=== PATIENT | male | born 1965 | race Caucasian/White ===

== ENCOUNTER → 2020-04-02 14:24 | Outpatient (BNVA) | payer MEDICARE, MEDICAID, SELFPAY | PROVIDERS: Visit Provider Internal Medicine | DX: Z76.89 Persons encountering health services in other specified circumstances (principal) ==

== ENCOUNTER 2021-03-31 13:32 | Outpatient (RCR) | payer OTHER, SELFPAY ==
[2021-03-31 13:54] VITALS: BP 162/83
== END 2021-04-11 11:43 | disposition home or self-care (01) ==
LOC: HO.PT 13:32
PROVIDERS: PCP Nurse Practitioner Family; Visit Provider Nurse Practitioner Family
DX: M54.50 Low back pain, unspecified (principal)
CPT/HCPCS: 97162

== ENCOUNTER → 2021-06-10 14:40 | Outpatient (BNVA) | payer OTHER, SELFPAY | PROVIDERS: PCP Nurse Practitioner Family; Referring Provider Nurse Practitioner Family; Visit Provider Internal Medicine | DX: I25.10 Atherosclerotic heart disease of native coronary artery without angina pectoris (principal); E11.9 Type 2 diabetes mellitus without complications; I10 Essential (primary) hypertension; E78.5 Hyperlipidemia, unspecified; Z86.73 Personal history of transient ischemic attack (TIA), and cerebral infarction without residual deficits; Z87.891 Personal history of nicotine dependence | CPT/HCPCS: 93005; 99212 ==

== ENCOUNTER 2022-02-06 12:41 | Inpatient (IN) | payer OTHER, SELFPAY ==
--- NOTE | ~2022-02-06 | CT_ITS ---
EXAMINATION: CT HEAD WITHOUT CONTRAST (STROKE PROTOCOL) CLINICAL INFORMATION: Stroke protocol. Change in mental status. Dysarthria. Ataxia. COMPARISON: MRI of the head done on 06/05/[address] of the head done on 06/05/[address] of the head also done on 06/05/2019. TECHNIQUE: Contiguous axial imaging was performed from the skull base to vertex without intravenous administration of contrast. This CT examination was performed using dose optimization techniques as appropriate, variously including the following: *Automated exposure control *Adjustment of mA and/or kV according to patient size (this includes techniques or standardized protocols for targeted exams where dose is matched to indication/reason for exam; i.e. extremities or head) *Use of iterative reconstruction technique DLP: 679 mGy-cm FINDINGS: There is no evidence of acute intracranial hemorrhage or territorial infarction. No abnormal mass effect or midline shift is seen. Gore to white matter differentiation is well preserved. No extra-axial fluid collections are identified. No significant volume loss. No hydrocephalus. Previously documented, clinically known old infarctions at the left basal ganglia are reidentified. The osseous structures and soft tissues are normal. Sclerosis of both mastoid air cells appear unchanged. Air-fluid level within the left maxillary sinus may represent acute sinusitis or intrasinus hemorrhage, if this patient has any recent trauma. CT/CT head for stroke IMPRESSION: No acute intracranial pathology. Previously documented, clinically known old infarctions at the left basal ganglia reidentified. Interval development of small air-fluid level within the left maxillary sinus, may represent acute sinusitis or intrasinus hemorrhage in this patient has any recent trauma. This critical result was discussed with Dr. Marco MD at 1:06 PM hours on 02/06/2022. It was ascertained that the content and urgency of the report was understood at the time of direct communication.
--- NOTE | ~2022-02-06 | XR_ITS ---
EXAMINATION: XR CHEST CLINICAL INFORMATION: Question pneumonia COMPARISON: Chest x-ray 06/05/2019 TECHNIQUE: Frontal view of the chest was obtained. FINDINGS: The lungs are clear. No airspace consolidation, pleural effusion, or pneumothorax. The cardiomediastinal silhouette is within normal limits. No acute osseous injury. XR/XR chest 1V IMPRESSION: No acute pulmonary process.
--- NOTE | ~2022-02-06 | CT_ITS ---
EXAMINATION: CT ANGIOGRAM HEAD CT ANGIOGRAM NECK CLINICAL INFORMATION: Reason for Exam dysarthria COMPARISON: Same day CT head without contrast, CTA head and neck 06/05/2019 TECHNIQUE: Initial noncontrast rotating field assembler imaging of the head and neck was performed. Comparison is made with noncontrast head CT from earlier today. Test bolus sequences followed by intravenous administration 70 mL of Omnipaque 350. Helical imaging was performed in the axial plane from the aortic arch to the skull vertex. Delayed postcontrast imaging of the head was also performed. The data was processed at the generation technologist's workstation for generation of MIP sequences. Angled MIPs and volume rendered reformatted images were also generated at an offline 3D workstation. Stenoses are assessed in accordance with NASCET criteria unless otherwise indicated. DLP: 1591 mGy-cm This CT examination was performed using dose optimization techniques as appropriate, variously including the following: *Automated exposure control. *Adjustment of mA and/or kV according to patient size (this includes techniques or standardized protocols for targeted exams where dose is matched to indication/reason for exam; i.e. extremities or head). *Use of iterative reconstruction technique. FINDINGS: CT of the head and neck is somewhat motion degraded. CT Head: There is no evidence of acute intracranial hemorrhage or edematous territorial infarction. A few foci of hypoattenuation in the periventricular and deep white matter are consistent with mild microangiopathy. Chronic left basal ganglia lacunar infarct. Gore-white matter differentiation is preserved. The ventricles are normal in size and configuration. No evidence for obstructive hydrocephalus. No abnormal mass effect or midline shift. No extra-axial fluid collections. No pathologic intra-axial enhancement or regional oligemia. No acute soft tissue or osseous abnormalities. Mild left greater than right maxillary sinus opacification. Mild ethmoid and left frontal sinus mucosal thickening. Bilateral mastoid fluid. CT Neck: The thyroid gland and remaining cervical soft tissues are within normal limits. Multilevel cervical spondylosis. CT Upper Chest: The visualized lung apices and upper mediastinum are within normal limits. Neck CTA: Aortic Arch: Normal contour and caliber. Classic 3 vessel branching pattern of the aortic arch. Great Vessel Origins: Dilation of the branch origins and proximal vessels in the neck is limited due to motion. Right Common Carotid Artery: No focal stenosis or occlusion. Cervical Right Internal Carotid Artery: Normal opacification without focal stenosis or occlusion. Left Common Carotid Artery: No focal stenosis or occlusion. Cervical Left Internal Carotid Artery: Calcific atherosclerotic disease of the carotid bulb and proximal internal carotid artery causing less than 50% stenosis. Cervical Right Vertebral Artery: No focal stenosis or occlusion. Cervical Left Vertebral Artery: No focal stenosis or occlusion. Brain CTA: Intracranial Internal Carotid Arteries: Calcific atherosclerotic disease of the intracranial internal carotid arteries without occlusion or flow-limiting stenosis. Right Anterior Cerebral Artery: New moderate stenosis of the right A1 origin. Normal opacification of the distal SNUG segments. Left Anterior Cerebral Artery: Normal A1 segment. Normal opacification of the distal SUNG segments. Anterior Communicating Artery: Normal. Right Middle Cerebral Artery: There is new mild to moderate stenosis of the proximal right M1 segment related to atherosclerotic disease. Normal arborization of the distal segments. Left Middle Cerebral Artery: Normal M1 segment of the MCA without focal stenosis or occlusion. Suggestion of focal high-grade stenosis involving a proximal left M2 branch (series 7 image 269) Right Vertebral Artery: Normal V4 segment. Left Vertebral Artery: Moderate stenosis of the mid intradural left vertebral artery as well is at the vertebrobasilar junction, likely on the basis of atherosclerotic disease, new compared to prior. Basilar Artery: Normal without focal stenosis or occlusion. Normal appearance of the proximal superior cerebellar arteries. Right Posterior Cerebral Artery: Normal P1 segment. Normal opacification of the distal SALES TEAM LEADER segments. Left Posterior Cerebral Artery: Normal P1 segment. Normal opacification of the distal SALES TEAM LEADER segments. New diffuse moderate stenosis of the left P2 segment Normal opacification of the superior sagittal, straight, transverse, and sigmoid sinuses. CT/CT angio head neck stroke IMPRESSION: Evidence of progressive intracranial atherosclerotic disease compared to CTA from 06/05/2019 without discrete large vessel occlusion. There is new moderate stenosis of the intradural left vertebral artery, left P2 segment, proximal right M1 segment, and right A1 origin. There is also suggestion of focal high-grade stenosis involving a proximal left M2 branch. Consider further evaluation with noncontrast MRI if there is concern for acute ischemia Above impression was discussed with Dr. Lara on 02/06/2022 at 1:26 PM
[2022-02-06 12:48] VITALS: BP 200/100; PULSE 112; O2SAT 97
[2022-02-06 12:50] VITALS: BMI 35.5
[2022-02-06 12:52] LABS: Glucose, Whole Blood 234 mg/dL (60-115)
[2022-02-06] MEDS: iohexoL 350 MG/ML 100 ML INFUS..BTL IV (13:12)
--- NOTE | 2022-02-06 13:14 | ED.NEUROSD ---
HPI - Neuro Symptoms/Deficit General Chief Complaint: Neuro Symptoms/Deficit Stated Complaint: stroke alert Time Seen by Provider: 02/06/22 12:43 Source: patient and EMS Mode of arrival: EMS History of Present Illness HPI Narrative: Patient with history of CVA in 2019 MRI showed lacunar infarcts in right temporal stem and left internal capsule, diabetes brought by EMS for acute onset of garbled speech and confusion noticed at 02:00 when patient went to the bathroom. According to patient's patient was very confused trying to eat canned food from the can lid acting weird delusional and hallucinating patient use cocaine but did use it last night patient had garbled speech when patient arrived seeing things Related Data Home Medications Medication Instructions Recorded Confirmed albuterol sulfate 90 mcg/actuation 2 puff inhalation Q6H PRN 06/10/21 06/10/21 aerosol inhaler (Ventolin HFA) amlodipine 10 mg tablet 10 mg PO DAILY 06/10/21 06/10/21 aspirin 81 mg tablet,delayed 81 mg PO DAILY 06/10/21 06/10/21 release (Adult Low Dose Aspirin) bupropion HCl 150 mg tablet,12 hr 150 mg PO BID 06/10/21 06/10/21 sustained-release (Wellbutrin SR) metformin 500 mg tablet 500 mg PO DAILY 06/10/21 06/10/21 naproxen 250 mg tablet 250 mg PO BID 06/10/21 06/10/21 tramadol 50 mg tablet 50 mg PO TID PRN 06/10/21 06/10/21 Previous Rx's Medication Instructions Recorded atorvastatin 80 mg tablet 80 mg PO QPM #90 tabs 06/10/21 lisinopril 40 mg tablet 40 mg PO DAILY #90 tabs 06/10/21 Allergies Allergy/AdvReac Type Severity Reaction Status Date / Time acetaminophen [From NYQUIL] Allergy Unknown UNKNOWN Verified 06/10/21 14:51 dextromethorphan Allergy Unknown UNKNOWN, Verified 06/10/21 14:51 [From NYQUIL] ingredient of Nyqui doxylamine [From NYQUIL] Allergy Unknown UNKNOWN Verified 06/10/21 14:51 pseudoephedrine [From NYQUIL] Allergy Unknown UNKNOWN, Verified 06/10/21 14:51 ingredient of Nyqui Doxylamine Succinate Allergy Unknown ingredient Uncoded 06/10/21 14:51 of Nyqui NyQuil Allergy Unknown unknown Uncoded 06/10/21 14:51 Review of Systems Review of Systems: Yes all other systems are reviewed and are negative FORMERLY [facility] Past Medical History Medical History Essential hypertension Surgical History H/O elbow surgery H/O wrist surgery H/O: hemorrhoidectomy Family History Family History Mother Diabetes HTN (hypertension) CAD (coronary artery disease) Father No problems noted. Social History Social History Alcohol intake: current Alcohol intake frequency: a few times a week Alcohol type: beer Patient Tobacco Use Status: Current everyday Tobacco user Cigarettes Per Day: 6 Years Smoked: 45 +/- Substance Use Type: Crack/Cocaine Advance Directives: No Advance Directives Information Provided: Yes Physical Exam Vital Signs: Vital Signs: Last Vital Signs Temp 100.3 F 02/06/22 16:05 Pulse 108 H 02/06/22 13:28 Resp 18 02/06/22 13:28 BP 185/96 H 02/06/22 13:28 Pulse Ox 95 02/06/22 13:28 O2 Del Method 02/06/22 13:28 BMI result Body Mass Index 63.6 Appearance: Alert. Oriented X2. No acute distress. Confused with garbled speech visual hallucinations+ Eyes: PERRLA, No Nystagmus ENT: Pharynx normal. Oral Mucosa moist Neck: Normal inspection. Neck supple. CVS: Normal heart rate and rhythm. Pulses normal. Respiratory: No respiratory distress. Equal air entry bilateral, no wheezing/rales/rhonchi Abdomen: Soft and nontender. Bowel sounds are present, no mass palpable, no CVA tenderness Skin: Skin warm and dry. Normal skin color. Normal skin turgor. Extremities: No lower extremity edema. No calf tenderness Neuro: Oriented X 2. No motor deficit. No sensory deficit.No cerebellar signs , cranial nerves II-XII intact Procedures Lumbar Puncture Time Out Performed: Yes Patient Position: upright Skin Prep: Povidone-Iodine 1% Local Anesthetic: lidocaine 1% Amount of anesthesia used (mL): 5 Spinal Needle Gauge: 22G Interspace Used: L3-L4 Complications: unable to obtain CSF MDM - Neuro Symptoms/Deficit MDM Narrative Medical decision making narrative: 230pmPatient's acute confusion hallucination etiology not very clear U tox positive for cocaine lactic acid 2.1 with slight leukocytosis will give IV fluids plan for lumbar puncture to rule out encephalopathy 4pm unable to do LP as patient noncompliant and moving all over, patient with more confusion pulling out his IV line EKG monitoring etiology not clear so far noted to have temperature of 100.3 degrees will give IV Rocephin plan to admit for metabolic encephalopathy versus substance abuse Medical Records Attestation: I reviewed the patient's medical records. Lab Data Attestation: I reviewed the patient's lab results. Result diagrams: 02/06/22 13:53 02/06/22 13:54 Labs: Lab Results 02/06/22 02/06/22 02/06/22 Range/Units 12:45 12:46 13:39 WBC (4.8-10.8) X10*3/uL RBC (4.60-5.80) X10*6/uL Hgb (14.0-18.0) g/dl Hct (42.0-52.0) % MCV (80.0-98.0) fL MCH (27.0-33.0) pg MCHC (31.0-36.0) g/dl RDW (11.0-16.0) % Plt Count (160-400) X10*3/uL MPV (9.4-12.4) fL Immature Gran % (Auto) (0.0-0.4) % Neut % (Auto) (45-73) % Lymph % (Auto) (20-40) % [place] % (Auto) (2-11) % Eos % (Auto) (0-4) % Baso % (Auto) (0-2) % Lymph # (Auto) (1.2-4.9) X10*3/uL [place] # (Auto) (0.1-1.2) X10*3/uL Eos # (Auto) (0.0-0.4) X10*3/uL Baso # (Auto) (0.0-0.2) X10*3/uL Abs Immat Gran (auto) (0.00-0.03) X10*3/uL Absolute Neuts (auto) (2.0-8.3) x10*3/uL Absolute Nucleated RBC (0.0-0.012) X10*3/uL Nucleated RBC % (auto) (0.0-0.2) /100WBC PT (10.0-13.1) SEC Whole Blood PT 11.6 (11.1-13.5) sec INR (0.9-1.1) Whole Blood INR 1.0 (0.9-1.1) APTT (26.0-36.4) SEC VBG pH (7.32-7.43) VBG pCO2 mmHg VBG pO2 mmHg VBG HCO3 (22-26) mmol/L VBG O2 Saturation % VBG Base Excess mmol/L Sodium (135-145) mmol/L Potassium (3.3-5.1) mmol/L Chloride (96-108) mmol/L Carbon Dioxide (22-29) mmol/L Anion Gap (12-20) BUN (9-16) mg/dL Creatinine (0.5-1.4) mg/dL Estim Creat Clear Calc Estimated GFR POC Glucose 234 H (60-115) mg/dL Random Glucose (60-115) mg/dL Lactic Acid (0.5-2.0) mmol/L Calcium (8.4-10.2) mg/dL Total Bilirubin (0.0-1.0) mg/dL AST (5-37) U/L ALT (0-40) U/L Alkaline Phosphatase (39-117) U/L Ammonia (13-55) umol/L Troponin I High Sens (<3.5-35.0) ng/L C-Reactive Protein (< or = 0.50) mg/dL Total Protein (6.5-8.0) g/dL Albumin (3.5-5.0) g/dL Procalcitonin ng/mL Urine Color Yellow Urine Appearance Clear Urine pH 6.5 (5.0-9.0) Ur Specific [place] <= 1.005 (1.005-1.025) Urine Protein 30 (1+) H (Neg-Trace) mg/dL Urine Glucose (UA) 500 H (Negative) mg/dL Urine Ketones Negative (Negative) mg/dL Urine Blood Negative (Negative) Urine Nitrite Negative (Negative) Ur Leukocyte Esterase Negative (Negative) Urine RBC 0-2 (0-2) /HPF Urine WBC 0-5 (0-5) /HPF Ur Squamous Epith Cells 0-2 (0-2) /HPF Urine Bacteria None Seen (None Seen) Hyaline Casts 0-2 (0-2) /LPF Urine Opiates Screen (Not Detect) Urine Fentanyl Screen (Not Detect) Ur Barbiturates Screen (Not Detect) Ur Phencyclidine Scrn (Not Detect) Ur Amphetamines Screen (Not Detect) U Benzodiazepines Scrn (Not Detect) Urine Cocaine Screen (Not Detect) U Marijuana (THC) Screen (Not Detect) COVID-19 ([facility]) (Negative) COVID-19 Clin Com 02/06/22 02/06/22 02/06/22 Range/Units 13:39 13:53 13:54 WBC 17.2 H (4.8-10.8) X10*3/uL RBC 4.99 (4.60-5.80) X10*6/uL Hgb 15.3 (14.0-18.0) g/dl Hct 43.7 (42.0-52.0) % MCV 87.6 (80.0-98.0) fL MCH 30.7 (27.0-33.0) pg MCHC 35.0 (31.0-36.0) g/dl RDW 13.1 (11.0-16.0) % Plt Count 437 H (160-400) X10*3/uL MPV 9.6 (9.4-12.4) fL Immature Gran % (Auto) 0.3 (0.0-0.4) % Neut % (Auto) 78.1 H (45-73) % Lymph % (Auto) 14.8 L (20-40) % [place] % (Auto) 5.8 (2-11) % Eos % (Auto) 0.6 (0-4) % Baso % (Auto) 0.4 (0-2) % Lymph # (Auto) 2.6 (1.2-4.9) X10*3/uL [place] # (Auto) 1.0 (0.1-1.2) X10*3/uL Eos # (Auto) 0.1 (0.0-0.4) X10*3/uL Baso # (Auto) 0.1 (0.0-0.2) X10*3/uL Abs Immat Gran (auto) 0.06 H (0.00-0.03) X10*3/uL Absolute Neuts (auto) 13.5 H (2.0-8.3) x10*3/uL Absolute Nucleated RBC 0.000 (0.0-0.012) X10*3/uL Nucleated RBC % (auto) 0.0 (0.0-0.2) /100WBC PT 10.0 (10.0-13.1) SEC Whole Blood PT (11.1-13.5) sec INR 0.9 (0.9-1.1) Whole Blood INR (0.9-1.1) APTT 39.8 H (26.0-36.4) SEC VBG pH (7.32-7.43) VBG pCO2 mmHg VBG pO2 mmHg VBG HCO3 (22-26) mmol/L VBG O2 Saturation % VBG Base Excess mmol/L Sodium (135-145) mmol/L Potassium (3.3-5.1) mmol/L Chloride (96-108) mmol/L Carbon Dioxide (22-29) mmol/L Anion Gap (12-20) BUN (9-16) mg/dL Creatinine (0.5-1.4) mg/dL Estim Creat Clear Calc Estimated GFR POC Glucose (60-115) mg/dL Random Glucose (60-115) mg/dL Lactic Acid (0.5-2.0) mmol/L Calcium (8.4-10.2) mg/dL Total Bilirubin (0.0-1.0) mg/dL AST (5-37) U/L ALT (0-40) U/L Alkaline Phosphatase (39-117) U/L Ammonia (13-55) umol/L Troponin I High Sens (<3.5-35.0) ng/L C-Reactive Protein (< or = 0.50) mg/dL Total Protein (6.5-8.0) g/dL Albumin (3.5-5.0) g/dL Procalcitonin ng/mL Urine Color Urine Appearance Urine pH (5.0-9.0) Ur Specific [place] (1.005-1.025) Urine Protein (Neg-Trace) mg/dL Urine Glucose (UA) (Negative) mg/dL Urine Ketones (Negative) mg/dL Urine Blood (Negative) Urine Nitrite (Negative) Ur Leukocyte Esterase (Negative) Urine RBC (0-2) /HPF Urine WBC (0-5) /HPF Ur Squamous Epith Cells (0-2) /HPF Urine Bacteria (None Seen) Hyaline Casts (0-2) /LPF Urine Opiates Screen Not Detected (Not Detect) Urine Fentanyl Screen Not Detected (Not Detect) Ur Barbiturates Screen Not Detected (Not Detect) Ur Phencyclidine Scrn Not Detected (Not Detect) Ur Amphetamines Screen Not Detected (Not Detect) U Benzodiazepines Scrn Not Detected (Not Detect) Urine Cocaine Screen POSITIVE H (Not Detect) U Marijuana (THC) Screen Not Detected (Not Detect) COVID-19 ([facility]) (Negative) COVID-19 Clin Com 02/06/22 02/06/22 02/06/22 Range/Units 13:54 13:54 13:54 WBC (4.8-10.8) X10*3/uL RBC (4.60-5.80) X10*6/uL Hgb (14.0-18.0) g/dl Hct (42.0-52.0) % MCV (80.0-98.0) fL MCH (27.0-33.0) pg MCHC (31.0-36.0) g/dl RDW (11.0-16.0) % Plt Count (160-400) X10*3/uL MPV (9.4-12.4) fL Immature Gran % (Auto) (0.0-0.4) % Neut % (Auto) (45-73) % Lymph % (Auto) (20-40) % [place] % (Auto) (2-11) % Eos % (Auto) (0-4) % Baso % (Auto) (0-2) % Lymph # (Auto) (1.2-4.9) X10*3/uL [place] # (Auto) (0.1-1.2) X10*3/uL Eos # (Auto) (0.0-0.4) X10*3/uL Baso # (Auto) (0.0-0.2) X10*3/uL Abs Immat Gran (auto) (0.00-0.03) X10*3/uL Absolute Neuts (auto) (2.0-8.3) x10*3/uL Absolute Nucleated RBC (0.0-0.012) X10*3/uL Nucleated RBC % (auto) (0.0-0.2) /100WBC PT (10.0-13.1) SEC Whole Blood PT (11.1-13.5) sec INR (0.9-1.1) Whole Blood INR (0.9-1.1) APTT (26.0-36.4) SEC VBG pH (7.32-7.43) VBG pCO2 mmHg VBG pO2 mmHg VBG HCO3 (22-26) mmol/L VBG O2 Saturation % VBG Base Excess mmol/L Sodium 133 L (135-145) mmol/L Potassium 4.6 (3.3-5.1) mmol/L Chloride 96 (96-108) mmol/L Carbon Dioxide 22 (22-29) mmol/L Anion Gap 20 (12-20) BUN 7 L (9-16) mg/dL Creatinine 0.99 (0.5-1.4) mg/dL Estim Creat Clear Calc 127.9 Estimated GFR > 60 POC Glucose (60-115) mg/dL Random Glucose 229 H (60-115) mg/dL Lactic Acid (0.5-2.0) mmol/L Calcium 9.8 (8.4-10.2) mg/dL Total Bilirubin 0.5 (0.0-1.0) mg/dL AST 21 (5-37) U/L ALT 35 (0-40) U/L Alkaline Phosphatase 155 H (39-117) U/L Ammonia 31 (13-55) umol/L Troponin I High Sens 6.1 (<3.5-35.0) ng/L C-Reactive Protein 1.54 H (< or = 0.50) mg/dL Total Protein 7.8 (6.5-8.0) g/dL Albumin 4.6 (3.5-5.0) g/dL Procalcitonin ng/mL Urine Color Urine Appearance Urine pH (5.0-9.0) Ur Specific [place] (1.005-1.025) Urine Protein (Neg-Trace) mg/dL Urine Glucose (UA) (Negative) mg/dL Urine Ketones (Negative) mg/dL Urine Blood (Negative) Urine Nitrite (Negative) Ur Leukocyte Esterase (Negative) Urine RBC (0-2) /HPF Urine WBC (0-5) /HPF Ur Squamous Epith Cells (0-2) /HPF Urine Bacteria (None Seen) Hyaline Casts (0-2) /LPF Urine Opiates Screen (Not Detect) Urine Fentanyl Screen (Not Detect) Ur Barbiturates Screen (Not Detect) Ur Phencyclidine Scrn (Not Detect) Ur Amphetamines Screen (Not Detect) U Benzodiazepines Scrn (Not Detect) Urine Cocaine Screen (Not Detect) U Marijuana (THC) Screen (Not Detect) COVID-19 ([facility]) (Negative) COVID-19 Clin Com 02/06/22 02/06/22 02/06/22 Range/Units 13:54 13:54 14:02 WBC (4.8-10.8) X10*3/uL RBC (4.60-5.80) X10*6/uL Hgb (14.0-18.0) g/dl Hct (42.0-52.0) % MCV (80.0-98.0) fL MCH (27.0-33.0) pg MCHC (31.0-36.0) g/dl RDW (11.0-16.0) % Plt Count (160-400) X10*3/uL MPV (9.4-12.4) fL Immature Gran % (Auto) (0.0-0.4) % Neut % (Auto) (45-73) % Lymph % (Auto) (20-40) % [place] % (Auto) (2-11) % Eos % (Auto) (0-4) % Baso % (Auto) (0-2) % Lymph # (Auto) (1.2-4.9) X10*3/uL [place] # (Auto) (0.1-1.2) X10*3/uL Eos # (Auto) (0.0-0.4) X10*3/uL Baso # (Auto) (0.0-0.2) X10*3/uL Abs Immat Gran (auto) (0.00-0.03) X10*3/uL Absolute Neuts (auto) (2.0-8.3) x10*3/uL Absolute Nucleated RBC (0.0-0.012) X10*3/uL Nucleated RBC % (auto) (0.0-0.2) /100WBC PT (10.0-13.1) SEC Whole Blood PT (11.1-13.5) sec INR (0.9-1.1) Whole Blood INR (0.9-1.1) APTT (26.0-36.4) SEC VBG pH 7.41 (7.32-7.43) VBG pCO2 31 mmHg VBG pO2 49 mmHg VBG HCO3 20 L (22-26) mmol/L VBG O2 Saturation 83.0 % VBG Base Excess -3.1 mmol/L Sodium (135-145) mmol/L Potassium (3.3-5.1) mmol/L Chloride (96-108) mmol/L Carbon Dioxide (22-29) mmol/L Anion Gap (12-20) BUN (9-16) mg/dL Creatinine (0.5-1.4) mg/dL Estim Creat Clear Calc Estimated GFR POC Glucose (60-115) mg/dL Random Glucose (60-115) mg/dL Lactic Acid 2.1 H* (0.5-2.0) mmol/L Calcium (8.4-10.2) mg/dL Total Bilirubin (0.0-1.0) mg/dL AST (5-37) U/L ALT (0-40) U/L Alkaline Phosphatase (39-117) U/L Ammonia (13-55) umol/L Troponin I High Sens (<3.5-35.0) ng/L C-Reactive Protein (< or = 0.50) mg/dL Total Protein (6.5-8.0) g/dL Albumin (3.5-5.0) g/dL Procalcitonin 0.05 ng/mL Urine Color Urine Appearance Urine pH (5.0-9.0) Ur Specific [place] (1.005-1.025) Urine Protein (Neg-Trace) mg/dL Urine Glucose (UA) (Negative) mg/dL Urine Ketones (Negative) mg/dL Urine Blood (Negative) Urine Nitrite (Negative) Ur Leukocyte Esterase (Negative) Urine RBC (0-2) /HPF Urine WBC (0-5) /HPF Ur Squamous Epith Cells (0-2) /HPF Urine Bacteria (None Seen) Hyaline Casts (0-2) /LPF Urine Opiates Screen (Not Detect) Urine Fentanyl Screen (Not Detect) Ur Barbiturates Screen (Not Detect) Ur Phencyclidine Scrn (Not Detect) Ur Amphetamines Screen (Not Detect) U Benzodiazepines Scrn (Not Detect) Urine Cocaine Screen (Not Detect) U Marijuana (THC) Screen (Not Detect) COVID-19 ([facility]) (Negative) COVID-19 Clin Com 02/06/22 Range/Units 14:35 WBC (4.8-10.8) X10*3/uL RBC (4.60-5.80) X10*6/uL Hgb (14.0-18.0) g/dl Hct (42.0-52.0) % MCV (80.0-98.0) fL MCH (27.0-33.0) pg MCHC (31.0-36.0) g/dl RDW (11.0-16.0) % Plt Count (160-400) X10*3/uL MPV (9.4-12.4) fL Immature Gran % (Auto) (0.0-0.4) % Neut % (Auto) (45-73) % Lymph % (Auto) (20-40) % [place] % (Auto) (2-11) % Eos % (Auto) (0-4) % Baso % (Auto) (0-2) % Lymph # (Auto) (1.2-4.9) X10*3/uL [place] # (Auto) (0.1-1.2) X10*3/uL Eos # (Auto) (0.0-0.4) X10*3/uL Baso # (Auto) (0.0-0.2) X10*3/uL Abs Immat Gran (auto) (0.00-0.03) X10*3/uL Absolute Neuts (auto) (2.0-8.3) x10*3/uL Absolute Nucleated RBC (0.0-0.012) X10*3/uL Nucleated RBC % (auto) (0.0-0.2) /100WBC PT (10.0-13.1) SEC Whole Blood PT (11.1-13.5) sec INR (0.9-1.1) Whole Blood INR (0.9-1.1) APTT (26.0-36.4) SEC VBG pH (7.32-7.43) VBG pCO2 mmHg VBG pO2 mmHg VBG HCO3 (22-26) mmol/L VBG O2 Saturation % VBG Base Excess mmol/L Sodium (135-145) mmol/L Potassium (3.3-5.1) mmol/L Chloride (96-108) mmol/L Carbon Dioxide (22-29) mmol/L Anion Gap (12-20) BUN (9-16) mg/dL Creatinine (0.5-1.4) mg/dL Estim Creat Clear Calc Estimated GFR POC Glucose (60-115) mg/dL Random Glucose (60-115) mg/dL Lactic Acid (0.5-2.0) mmol/L Calcium (8.4-10.2) mg/dL Total Bilirubin (0.0-1.0) mg/dL AST (5-37) U/L ALT (0-40) U/L Alkaline Phosphatase (39-117) U/L Ammonia (13-55) umol/L Troponin I High Sens (<3.5-35.0) ng/L C-Reactive Protein (< or = 0.50) mg/dL Total Protein (6.5-8.0) g/dL Albumin (3.5-5.0) g/dL Procalcitonin ng/mL Urine Color Urine Appearance Urine pH (5.0-9.0) Ur Specific [place] (1.005-1.025) Urine Protein (Neg-Trace) mg/dL Urine Glucose (UA) (Negative) mg/dL Urine Ketones (Negative) mg/dL Urine Blood (Negative) Urine Nitrite (Negative) Ur Leukocyte Esterase (Negative) Urine RBC (0-2) /HPF Urine WBC (0-5) /HPF Ur Squamous Epith Cells (0-2) /HPF Urine Bacteria (None Seen) Hyaline Casts (0-2) /LPF Urine Opiates Screen (Not Detect) Urine Fentanyl Screen (Not Detect) Ur Barbiturates Screen (Not Detect) Ur Phencyclidine Scrn (Not Detect) Ur Amphetamines Screen (Not Detect) U Benzodiazepines Scrn (Not Detect) Urine Cocaine Screen (Not Detect) U Marijuana (THC) Screen (Not Detect) COVID-19 ([facility]) Negative (Negative) COVID-19 Clin Com See Note ECG Data Attestation: I personally reviewed and interpreted this ECG as follows: Interpretation: Sinus tachycardia heart rate 104 beats per minute LVH no acute ST-T changes no acute ischemia NIH Stroke Scale Internal: Initial- Upon Arrival Level of Consciousness: Alert Level of Consciousness Questions: Answers both questions correctly Level of Consciousness Commands: Performs both tasks correctly Best Gaze: Normal Visual: No visual loss Facial Palsy: Normal Motor Arm (Right): No drift Motor Arm (Left): No drift Motor Leg (Right): No drift Motor Leg (Left): No drift Limb Ataxia: Absent Sensory: Normal Best Language: Mild to moderate aphasia Dysarthia: Mild to moderate dysarthria Extinction and Inattention: No abnormality Score: 2 Discharge Plan Discharge Clinical Impression: Acute metabolic encephalopathy, Fever Patient Disposition: Admitted As Inpatient
[2022-02-06 13:20] LABS: Prothrombin Time Whole Bld POC 11.6 sec (11.1-13.5)
[2022-02-06 13:28] VITALS: BP 185/96; PULSE 108; RESP 18; TEMP 37.1; O2SAT 95; BMI 63.6
--- NOTE | 2022-02-06 13:40 | ECG_ITS ---
Test Reason : neuro symptoms Blood Pressure : / mmHG Vent. Rate : 104 BPM Atrial Rate : 104 BPM P-R Int : 122 ms QRS Dur : 094 ms QT Int : 356 ms P-R-T Axes : 044 -26 021 degrees QTc Int : 468 ms Sinus tachycardia Moderate voltage criteria for LVH, may be normal variant ( R in aVL , [place] product ) Borderline ECG When compared with ECG of 05-JUN-2019 13:02, No significant change was found Referred By: Varinder Lara Electronically Signed By:RAUDEL JERRY
[2022-02-06 14:04] LABS: MANUAL DIFF FLAG NO
[2022-02-06 14:05] LABS: Venous Blood Gas Refer to POC result
[2022-02-06 14:06] LABS: Basophils Absolute Auto 0.1 X10*3/uL (0.0-0.2); Basophils Percent Auto 0.4 % (0-2); Eosinophils Absolute Auto 0.1 X10*3/uL (0.0-0.4); Eosinophils Percent Auto 0.6 % (0-4); Hematocrit 43.7 % (42.0-52.0); Hemoglobin 15.3 g/dl (14.0-18.0); Imm Gran Abs Auto 0.06 X10*3/uL (0.00-0.03); Imm Gran Pct Auto 0.3 % (0.0-0.4); Lymphocytes Absolute Auto 2.6 X10*3/uL (1.2-4.9); Lymphocytes Percent Auto 14.8 % (20-40); Mean Corpuscular Hemoglobin 30.7 pg (27.0-33.0); Mean Corpuscular Volume 87.6 fL (80.0-98.0); Mean Platelet Volume 9.6 fL (9.4-12.4); Monocytes Percent Auto 5.8 % (2-11); Neutrophils Absolute Auto 13.5 x10*3/uL (2.0-8.3); Neutrophils Percent Auto 78.1 % (45-73); Platelet Count 437 X10*3/uL (160-400); Red Blood Count 4.99 X10*6/uL (4.60-5.80); Red Cell Distribution Width 13.1 % (11.0-16.0); White Blood Count 17.2 X10*3/uL (4.8-10.8)
[2022-02-06 14:07] LABS: VBG Base Excess -3.1 mmol/L; VBG HCO3 20 mmol/L (22-26); VBG pCO2 31 mmHg; VBG pH 7.41 (7.32-7.43); VBG pO2 49 mmHg
[2022-02-06 14:14] LABS: INTERNATIONAL NORM RATIO 0.9 (0.9-1.1)
[2022-02-06 14:17] LABS: Ammonia 31 umol/L (13-55); Partial Thromboplastin Time 39.8 SEC (26.0-36.4)
[2022-02-06 14:17] LABS: Appearance Urine Clear; Color Urine Yellow; Glucose Urine UA 500 mg/dL (Negative); Leukocyte Esterase Urine Negative (Negative); Nitrite Urine Negative (Negative); PH 6.5 (5.0-9.0); Specific Gravity - Urine <= 1.005 (1.005-1.025); Urine Blood Negative (Negative); Urine Ketones Negative (Negative); Urine Protein 30 (1+) mg/dL (Neg-Trace)
[2022-02-06 14:20] LABS: Bacteria Urine None Seen (None Seen); Hyaline Casts Urine 0-2 /LPF (0-2); RBC Urine 0-2 /HPF (0-2); Squamous Epithelial Cell Urine 0-2 /HPF (0-2); WBC Urine 0-5 /HPF (0-5)
[2022-02-06 14:25] LABS: Alanine Aminotransferase 35 U/L (0-40); Albumin Level 4.6 g/dL (3.5-5.0); Alkaline Phosphatase 155 U/L (39-117); Anion Gap 20 (12-20); Aspartate Amino Transferase 21 U/L (5-37); Bilirubin Total 0.5 mg/dL (0.0-1.0); Blood Urea Nitrogen 7 mg/dL (9-16); Calcium 9.8 mg/dL (8.4-10.2); Carbon Dioxide 22 mmol/L (22-29); Chloride 96 mmol/L (96-108); Creatinine Clr Calc Pharmacy 127.9; Estimated Glomerular Filt Rate > 60; Glucose Random 229 mg/dL (60-115); Lactic Acid 2.1 mmol/L (0.5-2.0); Potassium 4.6 mmol/L (3.3-5.1); Sodium 133 mmol/L (135-145); Total Protein 7.8 g/dL (6.5-8.0)
[2022-02-06 14:29] LABS: Troponin-I High Sensitivity 6.1 ng/L (<3.5-35.0)
[2022-02-06 14:33] LABS: Amphetamine Screen Urine Not Detected (Not Detect); Barbiturates, Urine Not Detected (Not Detect); Benzodiazepines Screen Urine Not Detected (Not Detect); Cannabinoid Screen Urine Not Detected (Not Detect); Cocaine Screen Urine POSITIVE (Not Detect); Fentanyl, urine Not Detected (Not Detect); Opiate Screen Urine Not Detected (Not Detect); Phencyclidine Screen Urine Not Detected (Not Detect)
[2022-02-06 15:10] LABS: COVID-19 Test Negative (Negative); IDNOW Serial# 16C4AD1C
[2022-02-06] MEDS: 0.9 % Sodium Chloride 1,000 ML 999 ML IV ×2 (15:14)
[2022-02-06] MEDS: cefTRIAXone sodium 1 GM in 0.9 % Sodium Chloride 50 ML IV (15:14)
[2022-02-06 15:22] LABS: C Reactive Protein 1.54 mg/dL (< or = 0.50)
[2022-02-06] MEDS: Acetaminophen 325 MG TABLET 650 MG PO (15:24)
[2022-02-06 15:57] LABS: Procalcitonin 0.05 ng/mL
[2022-02-06 16:03] LABS: Reflex Lactate? Lactic Acid Added
[2022-02-06 16:05] VITALS: TEMP 37.9
--- NOTE | 2022-02-06 16:20 | PHA.MEDREC ---
Pharmacy Consult ? Medication Reconciliation Pharmacy has completed the medication reconciliation.
--- NOTE | 2022-02-06 16:37 | PM.IMHP ---
History of Present Illness Date of Service: 02/06/22 Chief Complaint: confusion Patient with? history of CVA in 2019 MRI showed lacunar infarcts in right temporal stem and left internal capsule, diabetes brought by EMS for acute onset of garbled speech and confusion noticed at 02:00 when patient went to the bathroom.? 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 No family present at bedside. All information gleaned from chart) Review of Systems Review of Systems: Unable to obtain [facility] Medical History Essential hypertension Family History Mother Diabetes HTN (hypertension) CAD (coronary artery disease) Father No problems noted. Surgical History H/O elbow surgery H/O wrist surgery H/O: hemorrhoidectomy Social History Alcohol intake: current Alcohol intake frequency: a few times a week Alcohol type: beer Patient Tobacco Use Status: Current everyday Tobacco user Cigarettes Per Day: 6 Years Smoked: 45 +/- Substance Use Type: Crack/Cocaine Advance Directives: No Advance Directives Information Provided: Yes Meds Allergies Allergy/AdvReac Type Severity Reaction Status Date / Time acetaminophen [From NYQUIL] Allergy Unknown UNKNOWN Verified 06/10/21 14:51 dextromethorphan Allergy Unknown UNKNOWN, Verified 06/10/21 14:51 [From NYQUIL] ingredient of Nyqui doxylamine [From NYQUIL] Allergy Unknown UNKNOWN Verified 06/10/21 14:51 pseudoephedrine [From NYQUIL] Allergy Unknown UNKNOWN, Verified 06/10/21 14:51 ingredient of Nyqui Doxylamine Succinate Allergy Unknown ingredient Uncoded 06/10/21 14:51 of Nyqui NyQuil Allergy Unknown unknown Uncoded 06/10/21 14:51 Active Medications: Current Medications Albuterol Sulfate (Albuterol Sulfate 90 Mcg 8 Gm Inhaler) 2 puff INHALE Q6H PRN PRN Reason: Shortness Of Breath Amlodipine Besylate (Amlodipine Besylate 10 Mg Tablet) 10 mg PO DAILY NICKY; Protocol Aspirin (Aspirin Enteric Coated 81 Mg Tablet.Dr) 81 mg PO DAILY NICKY Atorvastatin Calcium (Atorvastatin Calcium 80 Mg Tablet) 80 mg PO BEDTIME NICKY Ceftriaxone Sodium 1 gm/ (Sodium Chloride) 50 mls @ 100 mls/hr IV Q24H NICKY Lactated Ringer's (Lr) 1,000 mls @ 125 mls/hr IVCONT .Q8H NICKY Lisinopril (Lisinopril 40 Mg Tablet) 40 mg PO DAILY NICKY; Protocol Metformin HCl (Metformin Hcl Er 500 Mg Tab.Er.24h) 500 mg PO BIDWM NICKY Non-Formulary Medication (Bupropion Hcl [Wellbutrin Sr]) 150 mg PO BID NICKY Tramadol HCl (Tramadol Hcl 50 Mg Tablet) 50 mg PO Q12H PRN PRN Reason: Pain, Moderate Home Medications Medication Instructions Recorded Confirmed Last Taken Type albuterol sulfate 90 mcg/actuation 2 puff inhalation Q6H PRN 06/10/21 02/06/22 Unknown History aerosol inhaler (Ventolin HFA) Shortness Of Breath amlodipine 10 mg tablet 10 mg PO DAILY 06/10/21 02/06/22 Unknown History aspirin 81 mg tablet,delayed 81 mg PO DAILY 06/10/21 02/06/22 Unknown History release (Adult Low Dose Aspirin) bupropion HCl 150 mg tablet,12 hr 150 mg PO BID 06/10/21 02/06/22 Unknown History sustained-release (Wellbutrin SR) tramadol 50 mg tablet 50 mg PO Q12H PRN Pain, Moderate 06/10/21 02/06/22 Unknown History diclofenac sodium 1 % topical gel 2 g topical QID 02/06/22 02/06/22 Unknown History metformin 500 mg tablet,extended 1 tab PO BIDWM 02/06/22 02/06/22 Unknown History release 24 hr nicotine 10 mg inhalation 1 inh inhalation Q1H PRN Nicotine 02/06/22 02/06/22 Unknown History cartridge (Nicotrol) Cravings Physical Exam Vital Signs and Narrative: Vital Signs: Last Vital Signs Temp 100.3 F 02/06/22 16:05 Pulse 108 H 02/06/22 13:28 Resp 18 02/06/22 13:28 BP 185/96 H 02/06/22 13:28 Pulse Ox 95 02/06/22 13:28 O2 Del Method 02/06/22 13:28 BMI result Body Mass Index 63.6 Const: Other: Awake nonsensical speech. Appearing to respond to internal stimuli Resp: Other: Clear to auscultation bilaterally no rales rhonchi or wheezes Cardio: Other: No S4; positive S1-S2; no S3 murmurs rubs or gallops GI: Other: Soft nontender nondistended normoactive bowel sounds Neuro: Other: Unable to obtain; moving all extremities with equal power Extrem: Other: No edema bilaterally Results Labs CBC and Chem 7: 02/06/22 13:53 02/06/22 13:54 Labs: Laboratory Results - last 24 hr 02/06/22 02/06/22 02/06/22 12:45 12:46 13:39 MCV MCH MCHC RDW Plt Count MPV Immature Gran % (Auto) Neut % (Auto) Lymph % (Auto) Rooks % (Auto) Eos % (Auto) Baso % (Auto) Lymph # (Auto) Rooks # (Auto) Eos # (Auto) Baso # (Auto) Abs Immat Gran (auto) Absolute Neuts (auto) Absolute Nucleated RBC Nucleated RBC % (auto) PT Whole Blood PT 11.6 INR Whole Blood INR 1.0 APTT VBG pH VBG pCO2 VBG pO2 VBG HCO3 VBG O2 Saturation VBG Base Excess Anion Gap Estim Creat Clear Calc Estimated GFR POC Glucose 234 H Random Glucose Lactic Acid Calcium Total Bilirubin AST ALT Alkaline Phosphatase Ammonia C-Reactive Protein Total Protein Albumin Procalcitonin Urine Color Yellow Urine Appearance Clear Urine pH 6.5 Ur Specific [place] <= 1.005 Urine Protein 30 (1+) H Urine Glucose (UA) 500 H Urine Ketones Negative Urine Blood Negative Urine Nitrite Negative Ur Leukocyte Esterase Negative Urine RBC 0-2 Urine WBC 0-5 Ur Squamous Epith Cells 0-2 Urine Bacteria None Seen Hyaline Casts 0-2 Urine Opiates Screen Urine Fentanyl Screen Ur Barbiturates Screen Ur Phencyclidine Scrn Ur Amphetamines Screen U Benzodiazepines Scrn Urine Cocaine Screen U Marijuana (THC) Screen COVID-19 ([facility]INA) COVID-19 Clin Com 02/06/22 02/06/22 02/06/22 13:39 13:53 13:54 MCV 87.6 MCH 30.7 MCHC 35.0 RDW 13.1 Plt Count 437 H MPV 9.6 Immature Gran % (Auto) 0.3 Neut % (Auto) 78.1 H Lymph % (Auto) 14.8 L Rooks % (Auto) 5.8 Eos % (Auto) 0.6 Baso % (Auto) 0.4 Lymph # (Auto) 2.6 Rooks # (Auto) 1.0 Eos # (Auto) 0.1 Baso # (Auto) 0.1 Abs Immat Gran (auto) 0.06 H Absolute Neuts (auto) 13.5 H Absolute Nucleated RBC 0.000 Nucleated RBC % (auto) 0.0 PT 10.0 Whole Blood PT INR 0.9 Whole Blood INR APTT 39.8 H VBG pH VBG pCO2 VBG pO2 VBG HCO3 VBG O2 Saturation VBG Base Excess Anion Gap Estim Creat Clear Calc Estimated GFR POC Glucose Random Glucose Lactic Acid Calcium Total Bilirubin AST ALT Alkaline Phosphatase Ammonia C-Reactive Protein Total Protein Albumin Procalcitonin Urine Color Urine Appearance Urine pH Ur Specific [place] Urine Protein Urine Glucose (UA) Urine Ketones Urine Blood Urine Nitrite Ur Leukocyte Esterase Urine RBC Urine WBC Ur Squamous Epith Cells Urine Bacteria Hyaline Casts Urine Opiates Screen Not Detected Urine Fentanyl Screen Not Detected Ur Barbiturates Screen Not Detected Ur Phencyclidine Scrn Not Detected Ur Amphetamines Screen Not Detected U Benzodiazepines Scrn Not Detected Urine Cocaine Screen POSITIVE H U Marijuana (THC) Screen Not Detected COVID-19 ([facility]) COVID-19 Clin Com 02/06/22 02/06/22 02/06/22 13:54 13:54 13:54 MCV MCH MCHC RDW Plt Count MPV Immature Gran % (Auto) Neut % (Auto) Lymph % (Auto) Rooks % (Auto) Eos % (Auto) Baso % (Auto) Lymph # (Auto) Rooks # (Auto) Eos # (Auto) Baso # (Auto) Abs Immat Gran (auto) Absolute Neuts (auto) Absolute Nucleated RBC Nucleated RBC % (auto) PT Whole Blood PT INR Whole Blood INR APTT VBG pH VBG pCO2 VBG pO2 VBG HCO3 VBG O2 Saturation VBG Base Excess Anion Gap 20 Estim Creat Clear Calc 127.9 Estimated GFR > 60 POC Glucose Random Glucose 229 H Lactic Acid 2.1 H* Calcium 9.8 Total Bilirubin 0.5 AST 21 ALT 35 Alkaline Phosphatase 155 H Ammonia 31 C-Reactive Protein 1.54 H Total Protein 7.8 Albumin 4.6 Procalcitonin Urine Color Urine Appearance Urine pH Ur Specific [place] Urine Protein Urine Glucose (UA) Urine Ketones Urine Blood Urine Nitrite Ur Leukocyte Esterase Urine RBC Urine WBC Ur Squamous Epith Cells Urine Bacteria Hyaline Casts Urine Opiates Screen Urine Fentanyl Screen Ur Barbiturates Screen Ur Phencyclidine Scrn Ur Amphetamines Screen U Benzodiazepines Scrn Urine Cocaine Screen U Marijuana (THC) Screen COVID-19 (SELINA) COVID-19 Clin Com 02/06/22 02/06/22 02/06/22 13:54 14:02 14:35 MCV MCH MCHC RDW Plt Count MPV Immature Gran % (Auto) Neut % (Auto) Lymph % (Auto) Rooks % (Auto) Eos % (Auto) Baso % (Auto) Lymph # (Auto) Rooks # (Auto) Eos # (Auto) Baso # (Auto) Abs Immat Gran (auto) Absolute Neuts (auto) Absolute Nucleated RBC Nucleated RBC % (auto) PT Whole Blood PT INR Whole Blood INR APTT VBG pH 7.41 VBG pCO2 31 VBG pO2 49 VBG HCO3 20 L VBG O2 Saturation 83.0 VBG Base Excess -3.1 Anion Gap Estim Creat Clear Calc Estimated GFR POC Glucose Random Glucose Lactic Acid Calcium Total Bilirubin AST ALT Alkaline Phosphatase Ammonia C-Reactive Protein Total Protein Albumin Procalcitonin 0.05 Urine Color Urine Appearance Urine pH Ur Specific [place] Urine Protein Urine Glucose (UA) Urine Ketones Urine Blood Urine Nitrite Ur Leukocyte Esterase Urine RBC Urine WBC Ur Squamous Epith Cells Urine Bacteria Hyaline Casts Urine Opiates Screen Urine Fentanyl Screen Ur Barbiturates Screen Ur Phencyclidine Scrn Ur Amphetamines Screen U Benzodiazepines Scrn Urine Cocaine Screen U Marijuana (THC) Screen COVID-19 ([facility]INA) Negative COVID-19 Clin Com See Note Imaging Radiologist's Impressions: Impressions Head CT 02/06/22 12:56 IMPRESSION: No acute intracranial pathology. Previously documented, clinically known old infarctions at the left basal ganglia reidentified. Interval development of small air-fluid level within the left maxillary sinus, may represent acute sinusitis or intrasinus hemorrhage in this patient has any recent trauma. This critical result was discussed with Dr. Marco MD at 1:06 PM hours on 02/06/2022. It was ascertained that the content and urgency of the report was understood at the time of direct communication. Head/Neck CTA 02/06/22 13:13 IMPRESSION: Evidence of progressive intracranial atherosclerotic disease compared to CTA from 06/05/2019 without discrete large vessel occlusion. There is new moderate stenosis of the intradural left vertebral artery, left P2 segment, proximal right M1 segment, and right A1 origin. There is also suggestion of focal high-grade stenosis involving a proximal left M2 branch. Consider further evaluation with noncontrast MRI if there is concern for acute ischemia Above impression was discussed with Dr. Lara on 02/06/2022 at 1:26 PM Chest X-Ray 02/06/22 15:05 IMPRESSION: No acute pulmonary process. Assessment and Plan (1) Acute metabolic encephalopathy: Status: Acute (2) Essential hypertension: Status: Acute (3) Atherosclerotic cardiovascular disease: Status: Acute (4) Diabetes mellitus: Status: Acute Plan 57-year-old male with a history of prior CVA with minimal residual along with diabetes and hypertension presents today with altered mental status. There is no family at bedside all information gleaned from chart. U tox positive for cocaine although states she does not believe he did cocaine last night. Appears to be responding to internal stimuli 1. Acute metabolic encephalopathy (U tox positive and sinus changes on CT scan) -likely multifactorial; U tox positive only for cocaine -empirical ceftriaxone given white count and sinus changes on CT scan -IV fluids overnight observe on telemetry -Neuro/ID consult in a.m. if no improvement -follow-up on cultures -can consider psych consult if continues/medical workup negative 2. Essential hypertension -restart outpatient therapies -adjust as indicated 3. ASCD -continue statin and BELEN-inhibitor/ASA 4.DMII -diabetic diet -lispro correctional scale -add back oral therapies in a.m. if appropriate Full code Lovenox Patient will require 2 midnights going forward to treat acute mental status changes and complete workup. This cannot be achieved a lesser acute setting Quality Stroke Does the patient have a stroke diagnosis?: No VTE Prior VTE?: No VTE Risk Level:: Medical - moderate - high VTE Device Contraindication: Treatment Not Indicated VTE Drug Contraindication: N/A - Med Ordered
[2022-02-06 16:39] VITALS: BP 176/85; PULSE 102; RESP 20; O2SAT 94
[2022-02-06 16:46] LABS: ~Lactic Acid-LAB USE ONLY 1.8 mmol/L (0.5-2.0)
[2022-02-06] MEDS: Enoxaparin Sodium 40 MG/0.4 ML SYRINGE SUBCUT (18:46)
[2022-02-06] MEDS: Midazolam HCl/PF 2 MG/2 ML VIAL IVPUSH (19:26)
[2022-02-06] MEDS: Lactated Ringers 1,000 ML 125 ML IVCONT (20:10)
[2022-02-06 20:19] LABS: Glucose, Whole Blood 170 mg/dL (60-115)
[2022-02-06] MEDS: Insulin Lispro 100 UNIT/ML 3 ML VIAL SUBCUT (21:35)
[2022-02-06] MEDS: Atorvastatin Calcium 80 MG TABLET PO (21:40)
[2022-02-06 22:04] VITALS: BP 164/75; PULSE 87; RESP 20; O2SAT 96
--- NOTE | 2022-02-06 22:54 | MHC.CM.PN ---
CM attempted to meet with admitted patient with bed assignment pending. Pt very altered. machine shorthand reporter used, as pt is Romanian speaking. Pt unable to answer any questions. Very altered. Thrashing in bed. Medicated by RN. CM spoke with Anusha pat, whom he lives with. Anusha tells CM via oil derrick operator that pt is normally A&Ox4 and very independent. Pt had a CVA in 2019, but had minimal residuals. Uses a cane only and has no services. Pt does have hx of cocaine use and tox screen was positive for Cocaine. No HCP on file and patient is too altered to complete one. IMM 02/06 signed by partner. D/C plan pending resolution of AMS. Home vs placement. Family will transport home if pt d/c to home. D/C plan pending daily rounds. CM to follow for discharge planning.
[2022-02-07] VITALS (8 sets, daily range): BP systolic 138–184; BP diastolic 67–93; PULSE 84–103; RESP 16–20; TEMP 36.6–37.4; O2SAT 94–98; BMI 27.9
[2022-02-07] MEDS: Lactated Ringers 1,000 ML 125 ML IVCONT ×4 (01:12→23:02)
[2022-02-07] MEDS: traMADoL HCL 50 MG TABLET PO (03:48)
[2022-02-07 07:08] LABS: MANUAL DIFF FLAG NO
[2022-02-07 07:18] LABS: Basophils Absolute Auto 0.1 X10*3/uL (0.0-0.2); Basophils Percent Auto 0.3 % (0-2); Eosinophils Absolute Auto 0.2 X10*3/uL (0.0-0.4); Eosinophils Percent Auto 1.2 % (0-4); Hematocrit 44.3 % (42.0-52.0); Hemoglobin 15.2 g/dl (14.0-18.0); Imm Gran Abs Auto 0.11 X10*3/uL (0.00-0.03); Imm Gran Pct Auto 0.6 % (0.0-0.4); Lymphocytes Absolute Auto 3.8 X10*3/uL (1.2-4.9); Mean Corpuscular HGB Conc 34.3 g/dl (31.0-36.0); Mean Corpuscular Hemoglobin 30.5 pg (27.0-33.0); Mean Corpuscular Volume 88.8 fL (80.0-98.0); Mean Platelet Volume 10.3 fL (9.4-12.4); Monocytes Absolute Auto 1.3 X10*3/uL (0.1-1.2); Monocytes Percent Auto 7.1 % (2-11); Neutrophils Absolute Auto 12.5 x10*3/uL (2.0-8.3); Neutrophils Percent Auto 69.8 % (45-73); Platelet Count 442 X10*3/uL (160-400); Red Blood Count 4.99 X10*6/uL (4.60-5.80); White Blood Count 17.9 X10*3/uL (4.8-10.8)
[2022-02-07] MEDS: Aspirin Enteric Coated 81 MG TABLET.DR PO (07:42)
[2022-02-07] MEDS: buPROPion HCl XL 300 MG TAB.ER.24H PO (07:43)
[2022-02-07] MEDS: amLODIPine Besylate 10 MG TABLET PO (07:43)
[2022-02-07] MEDS: lisinopriL 40 MG TABLET PO (07:43)
[2022-02-07] MEDS: 0.9 % Sodium Chloride Flush 3 ML SYRINGE IVFLUSH ×2 (07:45→16:13)
[2022-02-07 07:48] LABS: Alanine Aminotransferase 31 U/L (0-40); Albumin Level 4.4 g/dL (3.5-5.0); Alkaline Phosphatase 148 U/L (39-117); Anion Gap 18 (12-20); Aspartate Amino Transferase 20 U/L (5-37); Bilirubin Total 0.9 mg/dL (0.0-1.0); Blood Urea Nitrogen 8 mg/dL (9-16); Calcium 9.7 mg/dL (8.4-10.2); Carbon Dioxide 26 mmol/L (22-29); Chloride 97 mmol/L (96-108); Creatinine Clr Calc Pharmacy 84.6; Estimated Glomerular Filt Rate > 60; Glucose Fasting 147 mg/dL (60-99); Potassium 4.4 mmol/L (3.3-5.1); Sodium 137 mmol/L (135-145); Total Protein 7.5 g/dL (6.5-8.0)
[2022-02-07 08:08] LABS: Glucose, Whole Blood 144 mg/dL (60-115)
[2022-02-07 11:17] LABS: Glucose, Whole Blood 199 mg/dL (60-115)
--- NOTE | 2022-02-07 11:28 | HO.PM.IMPN ---
Subjective Subjective Date of Service: 02/07/22 Interval History: This history was taken in [place] from the patient. Pt still confused, disoriented to place/date. Utox positive for cocaine. Moving all extremities. Review of Systems Review of Systems: Yes Unobtainable due to mental status Physical Exam Vital Signs: Vital Signs: Last Vital Signs Temp 99.2 F 02/07/22 11:02 Pulse 94 02/07/22 11:02 Resp 20 02/07/22 11:02 BP 138/67 02/07/22 11:02 Pulse Ox 95 02/07/22 11:02 O2 Del Method 02/07/22 11:02 BMI result Body Mass Index 27.9 Gen: in no acute distress HEENT: sclera anicteric, moist mucus membranes Neck: supple Lungs: clear to auscultation bilaterally Heart: regular rate and rhythm, no murmurs Abd: soft, non-tender, non-distended Ext: no edema Skin: warm/well-perfused Neuro: oriented to self only, no facial drop, no extremity weakness Psych: impaired insight Objective Data Active Medications Acetaminophen (Acetaminophen 325 Mg Tablet) 650 mg PO Q4H PRN PRN Reason: Fever Albuterol Sulfate (Albuterol Sulfate 90 Mcg 8 Gm Inhaler) 2 puff INHALE Q6H PRN PRN Reason: Shortness Of Breath Amlodipine Besylate (Amlodipine Besylate 10 Mg Tablet) 10 mg PO DAILY [facility]; Protocol Last Admin: 02/07/22 07:43 Dose: 10 mg Documented By: MICHELLE Aspirin (Aspirin Enteric Coated 81 Mg Tablet.) 81 mg PO DAILY [facility] Last Admin: 02/07/22 07:42 Dose: 81 mg Documented By: MICHELLE Atorvastatin Calcium (Atorvastatin Calcium 80 Mg Tablet) 80 mg PO BEDTIME [facility] Last Admin: 02/06/22 21:40 Dose: 80 mg Documented By: EZIO Bupropion HCl (Bupropion Hcl Xl 300 Mg Tab.Er.24h) 300 mg PO DAILY [facility] Last Admin: 02/07/22 07:43 Dose: 300 mg Documented By: MICHELLE Enoxaparin Sodium (Enoxaparin Sodium 40 Mg/0.4 Ml Syringe) 40 mg SUBCUT Q24H [facility] Last Admin: 02/06/22 18:46 Dose: 40 mg Documented By: OSCAR Lactated Ringer's (Lr) 1,000 mls @ 125 mls/hr IVCONT .Q8H [facility] Last Admin: 02/07/22 07:44 Dose: 125 mls/hr Documented By: MICHELLE Insulin Human Lispro (Insulin Lispro 100 Unit/Ml 3 Ml Vial) 0 unit SUBCUT QIDACHS [facility]; Protocol Last Admin: 02/07/22 08:12 Dose: Not Given Documented By: MICHELLE Non-Admin Reason: No Insulin Coverage Lisinopril (Lisinopril 40 Mg Tablet) 40 mg PO DAILY [facility]; Protocol Last Admin: 02/07/22 07:43 Dose: 40 mg Documented By: MICHELLE Sodium Chloride (0.9 % Sodium Chloride Flush 3 Ml Syringe) 3 ml IVFLUSH QSHIFT [facility] Last Admin: 02/07/22 07:45 Dose: 3 ml Documented By: MICHELLE Tramadol HCl (Tramadol Hcl 50 Mg Tablet) 50 mg PO Q12H PRN PRN Reason: Pain, Moderate Last Admin: 02/07/22 03:48 Dose: 50 mg Documented By: EZIO Labs CBC & Chem 7: 02/07/22 06:23 02/07/22 06:23 Labs: Laboratory Results - last 24 hr 02/06/22 02/06/22 02/06/22 12:45 12:46 13:39 MCV MCH MCHC RDW Plt Count MPV Immature Gran % (Auto) Neut % (Auto) Lymph % (Auto) Summers % (Auto) Eos % (Auto) Baso % (Auto) Lymph # (Auto) Summers # (Auto) Eos # (Auto) Baso # (Auto) Abs Immat Gran (auto) Absolute Neuts (auto) Absolute Nucleated RBC Nucleated RBC % (auto) PT Whole Blood PT 11.6 INR Whole Blood INR 1.0 APTT VBG pH VBG pCO2 VBG pO2 VBG HCO3 VBG O2 Saturation VBG Base Excess Anion Gap Estim Creat Clear Calc Estimated GFR POC Glucose 234 H Random Glucose Fasting Glucose Lactic Acid Lactic Acid F/U @ 2Hr Calcium Total Bilirubin AST ALT Alkaline Phosphatase Ammonia C-Reactive Protein Total Protein Albumin Procalcitonin Urine Color Yellow Urine Appearance Clear Urine pH 6.5 Ur Specific [place]orph[place] <= 1.005 Urine Protein 30 (1+) H Urine Glucose (UA) 500 H Urine Ketones Negative Urine Blood Negative Urine Nitrite Negative Ur Leukocyte Esterase Negative Urine RBC 0-2 Urine WBC 0-5 Ur Squamous Epith Cells 0-2 Urine Bacteria None Seen Hyaline Casts 0-2 Urine Opiates Screen Urine Fentanyl Screen Ur Barbiturates Screen Ur Phencyclidine Scrn Ur Amphetamines Screen U Benzodiazepines Scrn Urine Cocaine Screen U Marijuana (THC) Screen COVID-19 ([facility]) COVID-19 Clin Com 02/06/22 02/06/22 02/06/22 13:39 13:53 13:54 MCV 87.6 MCH 30.7 MCHC 35.0 RDW 13.1 Plt Count 437 H MPV 9.6 Immature Gran % (Auto) 0.3 Neut % (Auto) 78.1 H Lymph % (Auto) 14.8 L Summers % (Auto) 5.8 Eos % (Auto) 0.6 Baso % (Auto) 0.4 Lymph # (Auto) 2.6 Summers # (Auto) 1.0 Eos # (Auto) 0.1 Baso # (Auto) 0.1 Abs Immat Gran (auto) 0.06 H Absolute Neuts (auto) 13.5 H Absolute Nucleated RBC 0.000 Nucleated RBC % (auto) 0.0 PT 10.0 Whole Blood PT INR 0.9 Whole Blood INR APTT 39.8 H VBG pH VBG pCO2 VBG pO2 VBG HCO3 VBG O2 Saturation VBG Base Excess Anion Gap Estim Creat Clear Calc Estimated GFR POC Glucose Random Glucose Fasting Glucose Lactic Acid Lactic Acid F/U @ 2Hr Calcium Total Bilirubin AST ALT Alkaline Phosphatase Ammonia C-Reactive Protein Total Protein Albumin Procalcitonin Urine Color Urine Appearance Urine pH Ur Specific [place]orphlet Urine Protein Urine Glucose (UA) Urine Ketones Urine Blood Urine Nitrite Ur Leukocyte Esterase Urine RBC Urine WBC Ur Squamous Epith Cells Urine Bacteria Hyaline Casts Urine Opiates Screen Not Detected Urine Fentanyl Screen Not Detected Ur Barbiturates Screen Not Detected Ur Phencyclidine Scrn Not Detected Ur Amphetamines Screen Not Detected U Benzodiazepines Scrn Not Detected Urine Cocaine Screen POSITIVE H U Marijuana (THC) Screen Not Detected COVID-19 ([facility]) COVID-19 Clin Com 02/06/22 02/06/22 02/06/22 13:54 13:54 13:54 MCV MCH MCHC RDW Plt Count MPV Immature Gran % (Auto) Neut % (Auto) Lymph % (Auto) Summers % (Auto) Eos % (Auto) Baso % (Auto) Lymph # (Auto) Summers # (Auto) Eos # (Auto) Baso # (Auto) Abs Immat Gran (auto) Absolute Neuts (auto) Absolute Nucleated RBC Nucleated RBC % (auto) PT Whole Blood PT INR Whole Blood INR APTT VBG pH VBG pCO2 VBG pO2 VBG HCO3 VBG O2 Saturation VBG Base Excess Anion Gap 20 Estim Creat Clear Calc 127.9 Estimated GFR > 60 POC Glucose Random Glucose 229 H Fasting Glucose Lactic Acid 2.1 H* Lactic Acid F/U @ 2Hr Calcium 9.8 Total Bilirubin 0.5 AST 21 ALT 35 Alkaline Phosphatase 155 H Ammonia 31 C-Reactive Protein 1.54 H Total Protein 7.8 Albumin 4.6 Procalcitonin Urine Color Urine Appearance Urine pH Ur Specific [place]orph[place] Urine Protein Urine Glucose (UA) Urine Ketones Urine Blood Urine Nitrite Ur Leukocyte Esterase Urine RBC Urine WBC Ur Squamous Epith Cells Urine Bacteria Hyaline Casts Urine Opiates Screen Urine Fentanyl Screen Ur Barbiturates Screen Ur Phencyclidine Scrn Ur Amphetamines Screen U Benzodiazepines Scrn Urine Cocaine Screen U Marijuana (THC) Screen COVID-19 ([facility]) COVID-19 Clin Com 02/06/22 02/06/22 02/06/22 13:54 14:02 14:35 MCV MCH MCHC RDW Plt Count MPV Immature Gran % (Auto) Neut % (Auto) Lymph % (Auto) Summers % (Auto) Eos % (Auto) Baso % (Auto) Lymph # (Auto) Summers # (Auto) Eos # (Auto) Baso # (Auto) Abs Immat Gran (auto) Absolute Neuts (auto) Absolute Nucleated RBC Nucleated RBC % (auto) PT Whole Blood PT INR Whole Blood INR APTT VBG pH 7.41 VBG pCO2 31 VBG pO2 49 VBG HCO3 20 L VBG O2 Saturation 83.0 VBG Base Excess -3.1 Anion Gap Estim Creat Clear Calc Estimated GFR POC Glucose Random Glucose Fasting Glucose Lactic Acid Lactic Acid F/U @ 2Hr Calcium Total Bilirubin AST ALT Alkaline Phosphatase Ammonia C-Reactive Protein Total Protein Albumin Procalcitonin 0.05 Urine Color Urine Appearance Urine pH Ur Specific Norph[place] Urine Protein Urine Glucose (UA) Urine Ketones Urine Blood Urine Nitrite Ur Leukocyte Esterase Urine RBC Urine WBC Ur Squamous Epith Cells Urine Bacteria Hyaline Casts Urine Opiates Screen Urine Fentanyl Screen Ur Barbiturates Screen Ur Phencyclidine Scrn Ur Amphetamines Screen U Benzodiazepines Scrn Urine Cocaine Screen U Marijuana (THC) Screen COVID-19 ([facility]) Negative COVID-19 Clin Com See Note 02/06/22 02/06/22 02/07/22 16:27 20:15 06:23 MCV 88.8 MCH 30.5 MCHC 34.3 RDW 13.0 Plt Count 442 H MPV 10.3 Immature Gran % (Auto) 0.6 H Neut % (Auto) 69.8 Lymph % (Auto) 21.0 Summers % (Auto) 7.1 Eos % (Auto) 1.2 Baso % (Auto) 0.3 Lymph # (Auto) 3.8 Summers # (Auto) 1.3 H Eos # (Auto) 0.2 Baso # (Auto) 0.1 Abs Immat Gran (auto) 0.11 H Absolute Neuts (auto) 12.5 H Absolute Nucleated RBC 0.000 Nucleated RBC % (auto) 0.0 PT Whole Blood PT INR Whole Blood INR APTT VBG pH VBG pCO2 VBG pO2 VBG HCO3 VBG O2 Saturation VBG Base Excess Anion Gap Estim Creat Clear Calc Estimated GFR POC Glucose 170 H Random Glucose Fasting Glucose Lactic Acid Lactic Acid F/U @ 2Hr 1.8 Calcium Total Bilirubin AST ALT Alkaline Phosphatase Ammonia C-Reactive Protein Total Protein Albumin Procalcitonin Urine Color Urine Appearance Urine pH Ur Specific Norph[place] Urine Protein Urine Glucose (UA) Urine Ketones Urine Blood Urine Nitrite Ur Leukocyte Esterase Urine RBC Urine WBC Ur Squamous Epith Cells Urine Bacteria Hyaline Casts Urine Opiates Screen Urine Fentanyl Screen Ur Barbiturates Screen Ur Phencyclidine Scrn Ur Amphetamines Screen U Benzodiazepines Scrn Urine Cocaine Screen U Marijuana (THC) Screen COVID-19 ([facility]) COVID-19 Clin Com 02/07/22 02/07/22 02/07/22 06:23 08:04 10:59 MCV MCH MCHC RDW Plt Count MPV Immature Gran % (Auto) Neut % (Auto) Lymph % (Auto) Summers % (Auto) Eos % (Auto) Baso % (Auto) Lymph # (Auto) Summers # (Auto) Eos # (Auto) Baso # (Auto) Abs Immat Gran (auto) Absolute Neuts (auto) Absolute Nucleated RBC Nucleated RBC % (auto) PT Whole Blood PT INR Whole Blood INR APTT VBG pH VBG pCO2 VBG pO2 VBG HCO3 VBG O2 Saturation VBG Base Excess Anion Gap 18 Estim Creat Clear Calc 84.6 Estimated GFR > 60 POC Glucose 144 H 199 H Random Glucose Fasting Glucose 147 H Lactic Acid Lactic Acid F/U @ 2Hr Calcium 9.7 Total Bilirubin 0.9 AST 20 ALT 31 Alkaline Phosphatase 148 H Ammonia C-Reactive Protein Total Protein 7.5 Albumin 4.4 Procalcitonin Urine Color Urine Appearance Urine pH Ur Specific Norphlet Urine Protein Urine Glucose (UA) Urine Ketones Urine Blood Urine Nitrite Ur Leukocyte Esterase Urine RBC Urine WBC Ur Squamous Epith Cells Urine Bacteria Hyaline Casts Urine Opiates Screen Urine Fentanyl Screen Ur Barbiturates Screen Ur Phencyclidine Scrn Ur Amphetamines Screen U Benzodiazepines Scrn Urine Cocaine Screen U Marijuana (THC) Screen COVID-19 ([facility]) COVID-19 Clin Com Assessment and Plan (1) Toxic encephalopathy: Status: Acute Plan hospital d#2 57yo M with prior CVA with minimal residual, DM, HTN presented with altered mental status (confusion, delusion, hallucinations) likely due to cocaine abuse # toxic encephalopathy - neuro checks, PT consult, to consider Addiction Medicine/CARE Team consult when AMS resolves # hx of CVA - ASA, statin, antihypertensives # HTN - lisinopril, amlodipine # DM2 - correction-dose lispro # mood disorder - bupropion # VTE ppx: LMWH In my clinical judgment, the patient requires continued hospitalization for the following reasons: encephalopathy Quality Stroke Does the patient have a stroke diagnosis?: No VTE Prior VTE?: No VTE Risk Level:: Medical - moderate - high VTE Device Contraindication: Treatment Not Indicated VTE Drug Contraindication: N/A - Med Ordered
[2022-02-07] MEDS: Insulin Lispro 100 UNIT/ML 3 ML VIAL SUBCUT ×2 (11:41→20:17)
[2022-02-07 16:02] LABS: Glucose, Whole Blood 148 mg/dL (60-115)
[2022-02-07] MEDS: Enoxaparin Sodium 40 MG/0.4 ML SYRINGE SUBCUT (18:04)
[2022-02-07 20:04] LABS: Glucose, Whole Blood 269 mg/dL (60-115)
[2022-02-07] MEDS: Acetaminophen 325 MG TABLET 650 MG PO (20:05)
[2022-02-07] MEDS: Atorvastatin Calcium 80 MG TABLET PO (20:18)
[2022-02-08 05:16] VITALS: BP 152/76; PULSE 75; RESP 20; TEMP 37; O2SAT 98
[2022-02-08] MEDS: Lactated Ringers 1,000 ML 125 ML IVCONT ×2 (05:51→07:46)
[2022-02-08 07:38] VITALS: BP 145/74; PULSE 81; RESP 20; TEMP 36.8; O2SAT 98
[2022-02-08 07:38] LABS: Glucose, Whole Blood 146 mg/dL (60-115)
[2022-02-08] MEDS: lisinopriL 40 MG TABLET PO (07:45)
[2022-02-08] MEDS: Aspirin Enteric Coated 81 MG TABLET.DR PO (07:45)
[2022-02-08] MEDS: buPROPion HCl XL 300 MG TAB.ER.24H PO (07:46)
[2022-02-08] MEDS: amLODIPine Besylate 10 MG TABLET PO (07:46)
[2022-02-08] MEDS: 0.9 % Sodium Chloride Flush 3 ML SYRINGE IVFLUSH ×3 (07:47→20:28)
[2022-02-08 09:35] LABS: Hematocrit 40.8 % (42.0-52.0); Hemoglobin 14.1 g/dl (14.0-18.0); Mean Corpuscular HGB Conc 34.6 g/dl (31.0-36.0); Mean Corpuscular Hemoglobin 30.5 pg (27.0-33.0); Mean Corpuscular Volume 88.3 fL (80.0-98.0); Mean Platelet Volume 10.1 fL (9.4-12.4); Platelet Count 409 X10*3/uL (160-400); Red Blood Count 4.62 X10*6/uL (4.60-5.80)
[2022-02-08 09:43] LABS: Alanine Aminotransferase 28 U/L (0-40); Albumin Level 4.3 g/dL (3.5-5.0); Alkaline Phosphatase 134 U/L (39-117); Anion Gap 17 (12-20); Aspartate Amino Transferase 21 U/L (5-37); Bilirubin Total 0.7 mg/dL (0.0-1.0); Blood Urea Nitrogen 7 mg/dL (9-16); Calcium 9.6 mg/dL (8.4-10.2); Carbon Dioxide 25 mmol/L (22-29); Chloride 101 mmol/L (96-108); Creatinine Clr Calc Pharmacy 85.5; Estimated Glomerular Filt Rate > 60; Glucose Random 144 mg/dL (60-115); Potassium 4.4 mmol/L (3.3-5.1); Sodium 139 mmol/L (135-145); Total Protein 7.3 g/dL (6.5-8.0)
[2022-02-08 10:03] LABS: TSH reflex Free T4 4.98 uIU/mL (0.32-4.0)
[2022-02-08 10:17] LABS: Procalcitonin 0.05 ng/mL
[2022-02-08 10:51] LABS: Free T4 (Free Thyroxine) 1.06 ng/dL (0.71-1.85)
[2022-02-08 11:17] VITALS: BP 147/97; PULSE 100; RESP 20; TEMP 36.7; O2SAT 96
[2022-02-08 11:34] LABS: Glucose, Whole Blood 201 mg/dL (60-115)
--- NOTE | 2022-02-08 11:37 | MHC.RECOVSUP ---
PT IS A 57YR OLD MALE WHO WAS ADMITTED TO THE HOSPITAL FOR ALTERED MENTAL STATUS. I WAS ASKED TO SEE PT ON THE MED FLOOR. WHEN ENTERING THE ROOM THE PT BROTHER WAS THERE. I ASKED PT IF IT WAS ALL RIGHT FOR ME TO DISCUSSED WHAT I DO A [employer]MI[employer]. PT STATED YES . 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 PT STATED THAT HE WANTS TO GO TO TREATMENT ,BUT NOT AROUND HERE.I ASKED PT WHERE WOULD HE BE INTERESTED IN GOING. PT STATED HE WOULD LIKE TO GO TO [facility] IN [facility]. I EXPLAINED TO PT THAT I WILL INFORMED THE TEAM ABOUT HIS REQUESTED.PT ALSO STATED THAT HE WAS JUST RECENTLY AT [facility]. HE STATED THE HE GRADUATED FROM [employer] AND WENT TO LIVE WITH HIS MOTHER. BROTHER TOLD ME THAT ONCE HE (PT) LEFT THE PROGRAM HE STARTED TO USE AGAIN. THEN THE BROTHER HAD TO THROW HIM OUT. BECAUSE THE BROTHER IS THE DIRECTOR LAW ENFORCEMENT FOR HIS MOTHER.WE ENDED OUR CONVERSATION WITH THAT I WOULD LET THE TEAM KNOW ABOUT WHAT THE PT WANTS TO DO. I ALSO GAVE PT INFORMATION AND RESOURCES.
[2022-02-08] MEDS: Insulin Lispro 100 UNIT/ML 3 ML VIAL SUBCUT (11:41)
--- NOTE | 2022-02-08 12:04 | HO.PM.IMPN ---
Subjective Subjective Date of Service: 02/08/22 Interval History: This history was taken in [place] from the patient. more awake/oriented today but still confused re: date (thinks it's December 2011) and unsure why he's in hospital says he last used cocaine 2 wk ago unable to participate in PT yesterday Review of Systems Review of Systems: Yes all other systems are reviewed and are negative Physical Exam Vital Signs: Vital Signs: Last Vital Signs Temp 98.1 F 02/08/22 11:17 Pulse 100 02/08/22 11:17 Resp 20 02/08/22 11:17 BP 147/97 H 02/08/22 11:17 Pulse Ox 96 02/08/22 11:17 O2 Del Method 02/08/22 11:17 BMI result Body Mass Index 27.9 Gen: in no acute distress HEENT: sclera anicteric, moist mucus membranes Neck: supple Lungs: clear to auscultation bilaterally Heart: regular rate and rhythm, no murmurs Abd: soft, non-tender, non-distended Ext: no edema Skin: warm/well-perfused Neuro: oriented to self + place, no facial drop, no extremity weakness Psych: impaired insight Objective Data Active Medications Acetaminophen (Acetaminophen 325 Mg Tablet) 650 mg PO Q4H PRN PRN Reason: Fever Last Admin: 02/07/22 20:05 Dose: 650 mg Documented By: PARVEEN Albuterol Sulfate (Albuterol Sulfate 90 Mcg 8 Gm Inhaler) 2 puff INHALE Q6H PRN PRN Reason: Shortness Of Breath Amlodipine Besylate (Amlodipine Besylate 10 Mg Tablet) 10 mg PO DAILY [facility]; Protocol Last Admin: 02/08/22 07:46 Dose: 10 mg Documented By: MICHELLE Aspirin (Aspirin Enteric Coated 81 Mg Tablet.) 81 mg PO DAILY [facility] Last Admin: 02/08/22 07:45 Dose: 81 mg Documented By: MICHELLE Atorvastatin Calcium (Atorvastatin Calcium 80 Mg Tablet) 80 mg PO BEDTIME [facility] Last Admin: 02/07/22 20:18 Dose: 80 mg Documented By: PARVEEN Bupropion HCl (Bupropion Hcl Xl 300 Mg Tab.Er.24h) 300 mg PO DAILY [facility] Last Admin: 02/08/22 07:46 Dose: 300 mg Documented By: MICHELLE Enoxaparin Sodium (Enoxaparin Sodium 40 Mg/0.4 Ml Syringe) 40 mg SUBCUT Q24H [facility] Last Admin: 02/07/22 18:04 Dose: 40 mg Documented By: MICHELLE Lactated Ringer's (Lr) 1,000 mls @ 125 mls/hr IVCONT .Q8H [facility] Last Admin: 02/08/22 07:46 Dose: 125 mls/hr Documented By: MICHELLE Insulin Human Lispro (Insulin Lispro 100 Unit/Ml 3 Ml Vial) 0 unit SUBCUT QIDACHS [facility]; Protocol Last Admin: 02/08/22 11:41 Dose: 4 unit Documented By: MICHELLE Lisinopril (Lisinopril 40 Mg Tablet) 40 mg PO DAILY [facility]; Protocol Last Admin: 02/08/22 07:45 Dose: 40 mg Documented By: MICHELLE Sodium Chloride (0.9 % Sodium Chloride Flush 3 Ml Syringe) 3 ml IVFLUSH QSHIFT [facility] Last Admin: 02/08/22 07:47 Dose: 3 ml Documented By: MICHELLE Labs CBC & Chem 7: 02/08/22 09:03 02/08/22 09:03 Labs: Laboratory Results - last 24 hr 02/07/22 02/07/22 02/08/22 15:54 19:54 07:35 MCV MCH MCHC RDW Plt Count MPV Absolute Nucleated RBC Nucleated RBC % (auto) Anion Gap Estim Creat Clear Calc Estimated GFR POC Glucose 148 H 269 H 146 H Random Glucose Calcium Total Bilirubin AST ALT Alkaline Phosphatase Total Protein Albumin Procalcitonin TSH Free T4 02/08/22 02/08/22 02/08/22 09:03 09:03 09:03 MCV 88.3 MCH 30.5 MCHC 34.6 RDW 13.0 Plt Count 409 H MPV 10.1 Absolute Nucleated RBC 0.000 Nucleated RBC % (auto) 0.0 Anion Gap 17 Estim Creat Clear Calc 85.5 Estimated GFR > 60 POC Glucose Random Glucose 144 H D Calcium 9.6 Total Bilirubin 0.7 AST 21 ALT 28 Alkaline Phosphatase 134 H Total Protein 7.3 Albumin 4.3 Procalcitonin 0.05 TSH 4.98 H Free T4 1.06 02/08/22 11:18 MCV MCH MCHC RDW Plt Count MPV Absolute Nucleated RBC Nucleated RBC % (auto) Anion Gap Estim Creat Clear Calc Estimated GFR POC Glucose 201 H Random Glucose Calcium Total Bilirubin AST ALT Alkaline Phosphatase Total Protein Albumin Procalcitonin TSH Free T4 Microbiology Microbiology Results: Microbiology 02/06/22 14:35 Blood Culture - Preliminary Blood - Venous No growth after 24 hours. 02/06/22 13:54 Blood Culture - Preliminary Blood - Venous No growth after 24 hours. Assessment and Plan (1) Toxic encephalopathy: Status: Acute Plan hospital d#3 57yo M with prior CVA with minimal residual, DM, HTN presented with altered mental status (confusion, delusion, hallucinations) likely due to cocaine abuse # toxic encephalopathy - neuro checks, PT consult, to consider Addiction Medicine/CARE Team consult when AMS resolves # hx of CVA - ASA, statin, antihypertensives # HTN - lisinopril, amlodipine # DM2 - correction-dose lispro # mood disorder - bupropion # VTE ppx: LMWH In my clinical judgment, the patient requires continued hospitalization for the following reasons: encephalopathy, safe dispo Quality Stroke Does the patient have a stroke diagnosis?: No VTE Prior VTE?: No VTE Risk Level:: Medical - moderate - high VTE Device Contraindication: Treatment Not Indicated VTE Drug Contraindication: N/A - Med Ordered
[2022-02-08 15:10] VITALS: BP 161/76; PULSE 87; RESP 18; TEMP 36.9; O2SAT 98
[2022-02-08 16:40] LABS: Glucose, Whole Blood 121 mg/dL (60-115)
[2022-02-08] MEDS: Enoxaparin Sodium 40 MG/0.4 ML SYRINGE SUBCUT (16:51)
[2022-02-08 19:31] VITALS: BP 154/74; PULSE 90; RESP 17; TEMP 37.5; O2SAT 96
[2022-02-08 19:59] LABS: Glucose, Whole Blood 130 mg/dL (60-115)
[2022-02-08] MEDS: Atorvastatin Calcium 80 MG TABLET PO (20:27)
[2022-02-08] MEDS: Acetaminophen 325 MG TABLET 650 MG PO (23:19)
[2022-02-09] VITALS: BP 125/74; PULSE 80; RESP 14; TEMP 37.2; O2SAT 94
[2022-02-09] MEDS: traZODone HCL 50 MG TABLET PO (01:58)
[2022-02-09 03:39] LABS: HIV AB/AG Nonreactive (Nonreactive); HIV Num 1 0.04 S/CO (0.00-0.99); ~HepC Num1 0.07 S/CO (0.00-0.79); ~Hepatitis C Antibody Nonreactive (Nonreactive)
[2022-02-09 04:00] VITALS: RESP 20
[2022-02-09 05:22] LABS: Syphilis Screen Nonreactive (Nonreactive)
[2022-02-09 05:51] LABS: Folate > 20.0 ng/mL (> or = 4.0); Vitamin B12 446 pg/mL (200-900)
[2022-02-09 07:58] VITALS: BP 144/72; PULSE 76; RESP 16; TEMP 36.7; O2SAT 97
[2022-02-09] MEDS: amLODIPine Besylate 10 MG TABLET PO (08:12)
[2022-02-09] MEDS: Aspirin Enteric Coated 81 MG TABLET.DR PO (08:12)
[2022-02-09] MEDS: buPROPion HCl XL 300 MG TAB.ER.24H PO (08:12)
[2022-02-09] MEDS: lisinopriL 40 MG TABLET PO (08:12)
[2022-02-09] MEDS: 0.9 % Sodium Chloride Flush 3 ML SYRINGE IVFLUSH (08:12)
[2022-02-09 08:21] VITALS: BP 144/72; PULSE 76; O2SAT 97
[2022-02-09 08:22] LABS: Glucose, Whole Blood 145 mg/dL (60-115)
--- NOTE | 2022-02-09 12:07 | MHC.RECOVRN ---
Met with pt in 486 to discuss substance use along with drapery maker. Pts brother also present, pt provided permission to continue discussion. Pt reports using cocaine, approx $50 daily, [place], off and on for years. Pts brother has helped pt enter 3 treatment programs, most recently [facility]. Brother would be able to have pt stay at his house for one night, no longer. Pt interested in returning to [facility] and prefers a [place] program. Referral has been sent to [facility] in [place] as there is bed availability. Awaiting review. Discussed with RN.
--- NOTE | 2022-02-09 14:18 | PM.DS ---
DS: Providers Provider Date of Service: 02/09/22 Date of admission: 02/06/22 16:34 Date of discharge: 02/09/22 Primary care physician: Ivania Castro Consults: 02/08/22 08:34 Addiction Medicine Routine Consulting Provider: Liliana Torres Reason for consultation: cocaine Consult to Care Team Routine Comment: Reason for consultation: cocaine DS: Diagnosis Discharge Diagnosis (1) Toxic encephalopathy: Status: Acute (2) Cocaine abuse: Status: Acute (3) Cerebrovascular disease: Status: Acute DS: Summary Hospital Course Hospital Course: from admission H+P by hospitalist Venkata Granger DO, 02/06/22: Patient with? history of CVA in 2019 MRI showed lacunar infarcts in right temporal stem and left internal capsule, diabetes brought by EMS for acute onset of garbled speech and confusion noticed at 02:00 when patient went to the bathroom.? 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 No family present at bedside.? All information gleaned from chart) This 57 year-old man with prior CVA with minimal residual, DM, HTN presented with altered mental status (confusion, delusion, hallucinations) that resolved over the course of hospitalization and ultimately was likely due to cocaine abuse. He admitted using cocaine, approximately $50 worth, intranasally, daily off and on for years. He was interested in inpatient substance abuse treatment and was discharged to [facility] in [place], [place]. Neuroimaging revealed sequelae of prior stroke as well as cerebrovascular disease. He is on statin and aspirin and the importance of glycemic and blood pressure control was counseled. Time Spent with Patient Time attestation: Total time spent providing and/or coordinating discharge services: 40 Discharge coordination time: Greater than 30 minutes Quality: Safe Use of Opioids Does Pt have an Active Cancer Diagnosis on the Problem List?: No Quality: Stroke Does the patient have a stroke diagnosis?: No Physical Exam Vital Signs: Vital Signs: Last Vital Signs Temp 98.1 F 02/09/22 07:58 Pulse 76 02/09/22 08:21 Resp 16 02/09/22 07:58 BP 144/72 H 02/09/22 08:21 Pulse Ox 97 02/09/22 08:21 O2 Del Method 02/09/22 07:58 BMI result Body Mass Index 27.9 Gen: in no acute distress HEENT: sclera anicteric, moist mucus membranes Neck: supple Lungs: clear to auscultation bilaterally Heart: regular rate and rhythm, no murmurs Abd: soft, non-tender, non-distended Ext: no edema Skin: warm/well-perfused Neuro: alert and oriented x3, no focal findings Psych: appropriate affect DS: Data Data Completed and Pending Completed studies during hospitalization [Text1]: Laboratory Results WBC 13.0 X10*3/uL (4.8-10.8) H 02/08/22 09:03 RBC 4.62 X10*6/uL (4.60-5.80) 02/08/22 09:03 Hgb 14.1 g/dl (14.0-18.0) 02/08/22 09:03 Hct 40.8 % (42.0-52.0) L 02/08/22 09:03 MCV 88.3 fL (80.0-98.0) 02/08/22 09:03 MCH 30.5 pg (27.0-33.0) 02/08/22 09:03 MCHC 34.6 g/dl (31.0-36.0) 02/08/22 09:03 RDW 13.0 % (11.0-16.0) 02/08/22 09:03 Plt Count 409 X10*3/uL (160-400) H 02/08/22 09:03 MPV 10.1 fL (9.4-12.4) 02/08/22 09:03 Immature Gran % (Auto) 0.6 % (0.0-0.4) H 02/07/22 06:23 Neut % (Auto) 69.8 % (45-73) 02/07/22 06:23 Lymph % (Auto) 21.0 % (20-40) 02/07/22 06:23 [place] % (Auto) 7.1 % (2-11) 02/07/22 06:23 Eos % (Auto) 1.2 % (0-4) 02/07/22 06:23 Baso % (Auto) 0.3 % (0-2) 02/07/22 06:23 Lymph # (Auto) 3.8 X10*3/uL (1.2-4.9) 02/07/22 06:23 [place] # (Auto) 1.3 X10*3/uL (0.1-1.2) H 02/07/22 06:23 Eos # (Auto) 0.2 X10*3/uL (0.0-0.4) 02/07/22 06:23 Baso # (Auto) 0.1 X10*3/uL (0.0-0.2) 02/07/22 06:23 Abs Immat Gran (auto) 0.11 X10*3/uL (0.00-0.03) H 02/07/22 06:23 Absolute Neuts (auto) 12.5 x10*3/uL (2.0-8.3) H 02/07/22 06:23 Absolute Nucleated RBC 0.000 X10*3/uL (0.0-0.012) 02/08/22 09:03 Nucleated RBC % (auto) 0.0 /100WBC (0.0-0.2) 02/08/22 09:03 PT 10.0 SEC (10.0-13.1) 02/06/22 13:54 Whole Blood PT 11.6 sec (11.1-13.5) 02/06/22 12:46 INR 0.9 (0.9-1.1) 02/06/22 13:54 Whole Blood INR 1.0 (0.9-1.1) 02/06/22 12:46 APTT 39.8 SEC (26.0-36.4) H 02/06/22 13:54 VBG pH 7.41 (7.32-7.43) 02/06/22 14:02 VBG pCO2 31 mmHg 02/06/22 14:02 VBG pO2 49 mmHg 02/06/22 14:02 VBG HCO3 20 mmol/L (22-26) L 02/06/22 14:02 VBG O2 Saturation 83.0 % 02/06/22 14:02 VBG Base Excess -3.1 mmol/L 02/06/22 14:02 Sodium 139 mmol/L (135-145) 02/08/22 09:03 Potassium 4.4 mmol/L (3.3-5.1) 02/08/22 09:03 Chloride 101 mmol/L (96-108) 02/08/22 09:03 Carbon Dioxide 25 mmol/L (22-29) 02/08/22 09:03 Anion Gap 17 (12-20) 02/08/22 09:03 BUN 7 mg/dL (9-16) L 02/08/22 09:03 Creatinine 0.94 mg/dL (0.5-1.4) 02/08/22 09:03 Estim Creat Clear Calc 85.5 02/08/22 09:03 Estimated GFR > 60 02/08/22 09:03 POC Glucose 145 mg/dL (60-115) H 02/09/22 08:11 Random Glucose 144 mg/dL (60-115) H D 02/08/22 09:03 Fasting Glucose 147 mg/dL (60-99) H 02/07/22 06:23 Lactic Acid 2.1 mmol/L (0.5-2.0) H* 02/06/22 13:54 Lactic Acid F/U @ 2Hr 1.8 mmol/L (0.5-2.0) 02/06/22 16:27 Calcium 9.6 mg/dL (8.4-10.2) 02/08/22 09:03 Total Bilirubin 0.7 mg/dL (0.0-1.0) 02/08/22 09:03 AST 21 U/L (5-37) 02/08/22 09:03 ALT 28 U/L (0-40) 02/08/22 09:03 Alkaline Phosphatase 134 U/L (39-117) H 02/08/22 09:03 Ammonia 31 umol/L (13-55) 02/06/22 13:54 Troponin I High Sens 6.1 ng/L (<3.5-35.0) 02/06/22 13:54 C-Reactive Protein 1.54 mg/dL (< or = 0.50) H 02/06/22 13:54 Total Protein 7.3 g/dL (6.5-8.0) 02/08/22 09:03 Albumin 4.3 g/dL (3.5-5.0) 02/08/22 09:03 Vitamin B12 446 pg/mL (200-900) 02/08/22 09:03 Folate > 20.0 ng/mL (> or = 4.0) 02/08/22 09:03 Procalcitonin 0.05 ng/mL 02/08/22 09:03 TSH 4.98 uIU/mL (0.32-4.0) H 02/08/22 09:03 Free T4 1.06 ng/dL (0.71-1.85) 02/08/22 09:03 Urine Color Yellow 02/06/22 13:39 Urine Appearance Clear 02/06/22 13:39 Urine pH 6.5 (5.0-9.0) 02/06/22 13:39 Ur Specific [place] <= 1.005 (1.005-1.025) 02/06/22 13:39 Urine Protein 30 (1+) mg/dL (Neg-Trace) H 02/06/22 13:39 Urine Glucose (UA) 500 mg/dL (Negative) H 02/06/22 13:39 Urine Ketones Negative mg/dL (Negative) 02/06/22 13:39 Urine Blood Negative (Negative) 02/06/22 13:39 Urine Nitrite Negative (Negative) 02/06/22 13:39 Ur Leukocyte Esterase Negative (Negative) 02/06/22 13:39 Urine RBC 0-2 /HPF (0-2) 02/06/22 13:39 Urine WBC 0-5 /HPF (0-5) 02/06/22 13:39 Ur Squamous Epith Cells 0-2 /HPF (0-2) 02/06/22 13:39 Urine Bacteria None Seen (None Seen) 02/06/22 13:39 Hyaline Casts 0-2 /LPF (0-2) 02/06/22 13:39 Urine Opiates Screen Not Detected (Not Detect) 02/06/22 13:39 Urine Fentanyl Screen Not Detected (Not Detect) 02/06/22 13:39 Ur Barbiturates Screen Not Detected (Not Detect) 02/06/22 13:39 Ur Phencyclidine Scrn Not Detected (Not Detect) 02/06/22 13:39 Ur Amphetamines Screen Not Detected (Not Detect) 02/06/22 13:39 U Benzodiazepines Scrn Not Detected (Not Detect) 02/06/22 13:39 Urine Cocaine Screen POSITIVE (Not Detect) H 02/06/22 13:39 U Marijuana (THC) Screen Not Detected (Not Detect) 02/06/22 13:39 T.pallidum Ab (EIA) Nonreactive (Nonreactive) 02/08/22 09:03 COVID-19 (SELINA) Negative (Negative) 02/06/22 14:35 COVID-19 Clin Com See Note 02/06/22 14:35 Hepatitis C Ab (EIA) Nonreactive (Nonreactive) 02/07/22 10:01 HIV 1&2 Ab/P24 Ag 4thGn Nonreactive (Nonreactive) 02/07/22 10:[address] 02/06/22 12:56 IMPRESSION: No acute intracranial pathology. Previously documented, clinically known old infarctions at the left basal ganglia reidentified. Interval development of small air-fluid level within the left maxillary sinus, may represent acute sinusitis or intrasinus hemorrhage in this patient has any recent trauma. This critical result was discussed with Dr. Marco MD at 1:06 PM hours on 02/06/2022. It was ascertained that the content and urgency of the report was understood at the time of direct communication. Head/Neck CTA 02/06/22 13:13 IMPRESSION: Evidence of progressive intracranial atherosclerotic disease compared to CTA from 06/05/2019 without discrete large vessel occlusion. There is new moderate stenosis of the intradural left vertebral artery, left P2 segment, proximal right M1 segment, and right A1 origin. There is also suggestion of focal high-grade stenosis involving a proximal left M2 branch. Consider further evaluation with noncontrast MRI if there is concern for acute ischemia Above impression was discussed with Dr. Lara on 02/06/2022 at 1:26 PM Chest X-Ray 02/06/22 15:05 IMPRESSION: No acute pulmonary process. Discharge Plan Discharge Patient Disposition: Home, Self-Care Discharge Diagnosis: encephalopathy due to cocaine abuse, history of stroke, cerebrovascular disease Referrals: Ivania Castro [Primary Care Provider] - 1 Week Discharge Medications: New nicotine (polacrilex) 2 mg gum 2 mg buccal Q2H Qty: 110 5RF Continued Nicotrol 10 mg cartridge 1 inh inhalation Q1H PRN (Reason: Nicotine Cravings) metformin 500 mg tablet extended release 24 hr 1 tab PO BIDWM diclofenac sodium 1 % gel 2 g topical QID aspirin [Adult Low Dose Aspirin] 81 mg tablet,delayed release (DR/EC) 81 mg PO DAILY amlodipine 10 mg tablet 10 mg PO DAILY albuterol sulfate [Ventolin HFA] 90 mcg/actuation HFA aerosol inhaler 2 puff inhalation Q6H PRN (Reason: Shortness Of Breath) bupropion HCl [Wellbutrin SR] 150 mg tablet sustained-release 12 hr 150 mg PO BID tramadol 50 mg tablet 50 mg PO Q12H PRN (Reason: Pain, Moderate) atorvastatin 80 mg tablet 80 mg PO QPM Qty: 90 3RF lisinopril 40 mg tablet 40 mg PO DAILY Qty: 90 3RF Discharge Orders: Discharge Order (Routine); Ordered 02/09/22 Ordered By: Fernando Stewart Diet: Low salt diet Activity on Discharge: As tolerated Stand Alone Forms: Patient Portal Discharge page Care Plan Goals: avoid cocaine prevent strokes Health Concerns: encephalopathy due to cocaine abuse, history of stroke, cerebrovascular disease Plan of Treatment: substance abuse treatment avoid cocaine continue aspirin + atorvastatin blood pressure control diabetes control quit smoking Please follow up with your primary care doctor within 1 week. Please return to the hospital if you experience recurrent or worsening symptoms. Assessment: See Discharge Summary. Patient Instructions: Cocaine Abuse (DC)
--- NOTE | 2022-02-09 15:10 | MHC.RECOVRN ---
Pt accepted to [facility] in [facility]. Will be transported via [employer].
--- NOTE | 2022-02-09 15:32 | MHC.CM.PN ---
Recovery team has arranged for patient's admit to [facility].
== END 2022-02-09 19:06 | disposition home or self-care (01) | DRG 917 ==
LOC: HO.ED 16:09 → HO.EDOVER 16:48 → HO.IMC 02-07 03:07
PROVIDERS: Admitting Provider Hospitalist; Emergency Provider Internal Medicine; PCP Nurse Practitioner Family; Visit Provider Family Medicine
DX: T40.5X1A Poisoning by cocaine, accidental (unintentional), initial encounter (principal); G92.8 Other toxic encephalopathy; F17.210 Nicotine dependence, cigarettes, uncomplicated; I25.10 Atherosclerotic heart disease of native coronary artery without angina pectoris; Z71.6 Tobacco abuse counseling; I10 Essential (primary) hypertension; Z56.0 Unemployment, unspecified; Z20.822 Contact with and (suspected) exposure to COVID-19; Z86.73 Personal history of transient ischemic attack (TIA), and cerebral infarction without residual deficits; Z88.6 Allergy status to analgesic agent; Z88.8 Allergy status to other drugs, medicaments and biological substances; Z79.82 Long term (current) use of aspirin; Z79.84 Long term (current) use of oral hypoglycemic drugs; Z79.899 Other long term (current) drug therapy
CPT/HCPCS: 36415; 70450; 70496; 70498; 71045; 80053; 80307; 81001; 81003; 82140; 82607; 82746; 82803; 82947; 83605; 84145; 84439; 84443; 84484; 85025; 85027; 85610; 85730; 86140; 86780; 86803; 87040; 87389; 87635; 93005; 97161; 99285; J0696; J1650; J2250; Q9967